=== PATIENT | female | born 1950 | race Caucasian/White ===

== ENCOUNTER 2020-01-03 12:29 | Inpatient (IN) | payer OTHER ==
[~2020-01-03] VITALS: Ht 165.1 cm; Wt 88.7 kg
[2020-01-03] MEDS ORDERED: INSURSD SC (12:42)
[2020-01-03] MEDS ORDERED: NS 1,000 ML IV SCH (12:48)
--- NOTE | 2020-01-03 13:26 | REP ---
A P and lateral chest with the patient sitting: There are no comparisons. The lung minor are clear. The cardiac size is normal. The kinjal, mediastinum, and skeletal structures are unremarkable. Impression: Negative AP and lateral chest. Electronically Signed by Andrés Lares MD 01/03/2020 01:18 P
[2020-01-03 13:29] LABS: BASO % 0.3 % (0.0-1.0); EOS # 0.1 10^3/uL (0.0-0.5); EOS % 0.9 % (0.0-3.0); HEMOGLOBIN 13.4 g/dl (12.0-15.5); LYMPH # 0.7 10^3/uL (1.5-5.0); LYMPH % 11.1 % (24.0-44.0); MEAN CORPUSCULAR HEMOGLOBIN 28.8 pg (27.0-33.0); MEAN CORPUSCULAR HGB CONC 32.7 g/dl (32.0-36.5); MONO # 0.6 10^3/uL (0.0-0.8); MONO % 10.9 % (0.0-5.0); NEUTROPHILS # 4.5 10^3/uL (1.5-8.5); NEUTROPHILS % 76.5 % (36.0-66.0); PLATELET COUNT, AUTOMATED 208 10^3/uL (150-450); RED BLOOD COUNT 4.66 10^6/uL (4.00-5.40); WHITE BLOOD COUNT 5.9 10^3/uL (4.0-10.0)
[2020-01-03 13:45] LABS: INR 1.05; PARTIAL THROMBOPLASTIN TIME 26.8 SECONDS (25.0-38.4); PROTHROMBIN TIME 13.4 SECONDS (11.8-14.0)
[2020-01-03 13:56] LABS: INFLUENZA A AMPLIFICATION POSITIVE (NEGATIVE); INFLUENZA B AMPLIFICATION NEGATIVE (NEGATIVE)
[2020-01-03 14:03] LABS: ALBUMIN 3.2 GM/DL (3.2-5.2); BILIRUBIN,DIRECT 0.2 MG/DL (0.0-0.2); BILIRUBIN,TOTAL 0.4 MG/DL (0.2-1.0); CALCIUM LEVEL 5.8 MG/DL (8.8-10.2); CK-MB VALUE MASS 1.5 NG/ML (<3.6); CREATININE FOR GFR 5.05 MG/DL (0.55-1.30); GLOMERULAR FILTRATION RATE 9.1 (>45); MB/CK RELATIVE INDEX 0.67 (< OR =4); POTASSIUM SERUM 3.1 MEQ/L (3.5-5.1); TOTAL PROTEIN 7.1 GM/DL (6.4-8.2); TROPONIN I 0.04 NG/ML (< 0.10)
[2020-01-03] MEDS ORDERED: POTASSIUM CHLORIDE 10 MEQ SR TABLET PO ONE (14:15)
[2020-01-03] MEDS ORDERED: CALCIUM GLUCONATE 1,000 MG in D5W MINI-BAG PLUS 100 ML IV ONE ×2 (14:15→18:00)
--- NOTE | 2020-01-03 16:26 | HPEPDOC ---
General Date of Admission 01/03/20 Date of Service: Jan 03, 2020 Chief Complaint The patient is a 69-year-old female admitted with a reason for visit of General Weakness. Source: Patient Exam Limitations: No limitations History of Present Illness 69 year old female presents with watery diarrhea and generalized weakness. States had "chest cold" 1 week ago, dry cough with sinus congestion. Soon after started with watery stools, nonbloody, 2-3 episodes per day. Denies fever/chills, abdominal pain, shortness of breath, urinary complaints. Diarrhea has persisted since, has had minimal PO intake, taking liquids but states "everything I eat passes right through me". Urinating as usual. Noted dark color to stool today prompting ED visit. Presents with BP 188/78, EKG T inversions I/avL, troponin negative, labs with K 3.1, Ca 5.8, SCr 5.05, flu positive A. Patient states only past medical history is DM, has last seen an MD 2 years ago and states her bloodwork was normal at that time. Home Medications Scheduled Insulin Human Regular (Humulin R) 100 Unit/1 Ml Vial, 13 UNITS SC BID, (Reported) Allergies Coded Allergies: No Known Allergies (Verified Allergy, Unknown, 01/03/20) Past Medical History Medical History DM2 Surgical History L knee surgery Family History Significant Family History: No pertinent family hx Social History * Smoker: Denies Alcohol: Denies Drugs: denies A-FIB/CHADSVASC A-FIB History Current/History of A-Fib/PAF?: No Review of Systems Constitutional: Reports: Weakness, Fatigue Eyes: Denies: Pain, Vision change ENT: Denies: Head Aches, Ear Pain, Dysphagia Skin: Denies: Rash, Lesions, Breakdown Pulmonary: Denies: Dyspnea, Cough Cardiovascular: Denies: Chest Pain, Palpitations, Orthopnea, Paroxysmal Noc. Dyspnea, Lt Headedness Gastrointestinal: Reports: Nausea, Diarrhea; Denies: Vomiting, Abdominal Pain Genitourinary: Denies: Dysuria, Frequency, Incontinence, Retention Hematologic: Denies: Bruising, Bleeding Excessively Musculoskeletal: Denies: Neck Pain, Back Pain, Joint Pain, Muscle Pain, Spasms Neurological: Denies: Weakness, Numbness, Change in speech, Confusion Psych: Reports: Mood Normal; Denies: Depression, Memory Issues Physical Examination General Exam: Positive: Alert, No Acute Distress Eye Exam: Positive: PERRLA, Conjunctiva & lids normal, EOMI; Negative: Sclera icteric ENT Exam: Positive: Atraumatic, Mucous membr. moist/pink, Pharynx Normal Neck Exam: Positive: Supple; Negative: JVD, thyromegaly Chest Exam: Positive: Clear to auscultation, Normal air movement Heart Exam: Positive: Rate Normal, Regular Rhythm, Normal S1, Normal S2; Negative: Murmurs, Rubs Telemetry: Positive: No significant arrhythmia Abdomen Exam: Positive: Normal bowel sounds, Soft; Negative: Tenderness, Hepatospenomegaly Extremity Exam: Positive: Normal pulses; Negative: Clubbing, Cyanosis, Edema Skin Exam: Positive: Nl turgor and temperature; Negative: Breakdown, Lesion Neuro Exam: Positive: Normal Gait, Normal Speech, Cranial Nerves 3-12 NL, Reflexes 2+ Psych Exam: Positive: Mental status NL, Mood NL, Oriented x 3 Vital Signs Vital Signs Date Time Temp Pulse Resp B/P (MAP) Pulse Ox O2 Delivery O2 Flow Rate FiO2 01/03/20 15:05 87 178/77 (110) 01/03/20 15:00 97 01/03/20 14:00 18 Room Air 01/03/20 12:40 98.0 Laboratory Data Labs 24H Laboratory Tests 2 01/03/20 13:04: Immature Granulocyte % (Auto) 0.3, Neutrophils (%) (Auto) 76.5H, Lymphocytes (%) (Auto) 11.1L, Monocytes (%) (Auto) 10.9H, Eosinophils (%) (Auto) 0.9, Basophils (%) (Auto) 0.3, Neutrophils # (Auto) 4.5, Lymphocytes # (Auto) 0.7L, Monocytes # (Auto) 0.6, Eosinophils # (Auto) 0.1, Basophils # (Auto) 0.0, Nucleated Red Blood Cells % (auto) 0.0, Prothrombin Time 13.4, Prothromb Time International Ratio 1.05, Activated Partial Thromboplast Time 26.8, Anion Gap 12, Glomerular Filtration Rate 9.1L, Calcium Level 5.8*L, Total Bilirubin 0.4, Direct Bilirubin 0.2, Aspartate Amino Transf (AST/SGOT) 24, Alanine Aminotransferase (ALT/SGPT) 20, Alkaline Phosphatase 114, Total Creatine Kinase 224H, Creatine Kinase MB 1.5, Creatine Kinase MB Relative Index 0.67, Troponin I 0.04, Total Protein 7.1, Albumin 3.2, Albumin/Globulin Ratio 0.82L, Lipase 107, Influenza Type A (RT-PCR) POSITIVEH, Influenza Type B (RT-PCR) NEGATIVE CBC/BMP Laboratory Tests 01/03/20 13:04 Assessment/Plan 1. acute renal failure - secondary to volume loss from diarrhea versus diabetic nephropathy. - would hydrate with IVF NS, follow SCr, monitor urine output. - Renal US, urine lytes. - consult to renal if no improvement. 2. watery diarrhea - IVF NS, stool studies, stool occult blood. - clear liquid diet. - zofran prn. 3. DM2 - FSBS/SSI coverage - check A1c. 4. hypokalemia - supplement, repeat levels. 5. mild troponemia - telemetry, serial markers. - repeat EKG. Plan / VTE VTE Prophylaxis Ordered?: Yes CARRIE CONTRERAS MD Jan 03, 2020 16:26
[2020-01-03] MEDS ORDERED: GLUCAGON FOR INJ 1 MG VIAL (J1610) SC PRN (16:30)
[2020-01-03] MEDS ORDERED: GLUCOSE 4 GM CHEW TABLET PO PRN (16:30)
[2020-01-03] MEDS ORDERED: ONDANSETRON 4MG/2ML VIAL (J2405) IV PRN (16:30)
[2020-01-03] MEDS ORDERED: DEXTROSE 50% 50 ML SYRINGE IV PRN (16:30)
[2020-01-03] MEDS: NS 1,000 ML IV SCH (16:51)
[2020-01-03] MEDS ORDERED: METOPROLOL 5 MG/5 ML VIAL IV STA (16:52)
[2020-01-03 16:55] LABS: CHOLESTEROL RISK RATIO 4.68 (<5)
[2020-01-03] MEDS ORDERED: OSELTAMIVIR PHOSPHATE 75 MG CAP (TAMIFLU) PO ONE (17:00)
[2020-01-03] MEDS ORDERED: amLODIPine 10 MG TAB PO ONE (17:00)
[2020-01-03 17:15] LABS: HEMOGLOBIN A1c 7.9 %
[2020-01-03 17:30] VITALS: BP 188/85
[2020-01-03] MEDS: HumaLOG INSULIN (NovoLOG) PER UNIT SC SCH (18:24)
[2020-01-03 20:00] VITALS: BP 142/65
--- NOTE | 2020-01-03 21:21 | REPVR ---
PROCEDURE INFORMATION: Exam: US Retroperitoneal Limited, Kidneys Exam date and time: 01/03/2020 5:42 PM Age: 69 years old Clinical indication: Abnormal findings; Abnormal lab test; Abnormal kidney function lab tests; Additional info: Acute renal failure TECHNIQUE: Imaging protocol: Real-time ultrasound of the retroperitoneum with image documentation. Examination was focused on the kidneys. COMPARISON: No relevant prior studies available. FINDINGS: Right kidney measures 9.9 cm in length. Left kidney measures 9.7 cm in length. Mild symmetric increased renal echotexture with no thinning. No solid renal mass, cyst or hydronephrosis. No shadowing, echogenic foci suggestive of stones. Bladder is unremarkable. IMPRESSION: No evidence of obstructive uropathy. Probable mild medical renal disease Electronically signed by: Cesar Paul On 01/03/2020 21:20:58 PM
[2020-01-04] VITALS (7 sets, daily range): BP systolic 158–194; BP diastolic 72–86
[2020-01-04] MEDS: NS 1,000 ML IV SCH ×2 (00:02→15:15)
[2020-01-04 00:58] LABS: CALCIUM LEVEL 5.9 MG/DL (8.8-10.2); CREATININE FOR GFR 4.87 MG/DL (0.55-1.30); GLOMERULAR FILTRATION RATE 9.5 (>45); POTASSIUM SERUM 3.4 MEQ/L (3.5-5.1); TROPONIN I 0.06 NG/ML (< 0.10)
[2020-01-04] MEDS ORDERED: POTASSIUM CHLORIDE 10 MEQ SR TABLET PO ONE (01:15)
[2020-01-04] MEDS ORDERED: CALCIUM GLUCONATE 1,000 MG in D5W MINI-BAG PLUS 100 ML IV ONE ×4 (01:15→18:00)
[2020-01-04 06:13] LABS: BILIRUBIN,TOTAL 0.3 MG/DL (0.2-1.0); CALCIUM LEVEL 5.9 MG/DL (8.8-10.2); CREATININE FOR GFR 4.75 MG/DL (0.55-1.30); GLOMERULAR FILTRATION RATE 9.8 (>45); POTASSIUM SERUM 3.8 MEQ/L (3.5-5.1); TOTAL PROTEIN 6.3 GM/DL (6.4-8.2)
[2020-01-04] MEDS: HumaLOG INSULIN (NovoLOG) PER UNIT SC SCH ×3 (08:02→17:47)
[2020-01-04] MEDS: OSELTAMIVIR PHOSPHATE 30MG CAPSULE PO SCH (08:03)
[2020-01-04] MEDS: CALCIUM/VITAMIN D 500 MG TAB PO SCH ×2 (08:03→21:17)
[2020-01-04] MEDS ORDERED: hydrALAZINE INJ 20 MG/ML VIAL IV STA (08:09)
[2020-01-04] MEDS ORDERED: CALCIUM GLUCONATE 1,000 MG in D5W MINI-BAG PLUS 100 ML IV STA (08:12)
[2020-01-04] MEDS ORDERED: CALCIUM GLUCONATE 1,000 MG in D5W MINI-BAG PLUS 100 ML IV SCH ×4 (09:00)
[2020-01-04] MEDS ORDERED: amLODIPine 10 MG TAB PO SCH (09:00)
--- NOTE | 2020-01-04 12:18 | IPNPDOC ---
Subjective Date Seen The patient was seen on 01/04/20. Subjective Chief Complaint/HPI Seen and examined at bedside, no specific complaints today, states feels better with "increased energy". General: Reports: Normal Appetite; Denies: Chills, Night Sweats, Fatigue, Malaise Constitutional: Denies: Chills, Fever, Night Sweats Eyes: Denies: Pain, Vision change ENT: Denies: Head Aches, Ear Pain, Dysphagia Skin: Denies: Rash, Lesions, Breakdown Pulmonary: Denies: Dyspnea, Cough Cardiovascular: Denies: Chest Pain, Palpitations, Orthopnea, Paroxysmal Noc. Dyspnea, Lt Headedness Gastrointestinal: Denies: Nausea, Vomiting, Abdominal Pain, Diarrhea, Consti pation Genitourinary: Denies: Dysuria, Frequency, Incontinence, Retention Hematologic: Denies: Bruising, Bleeding Excessively Musculoskeletal: Denies: Neck Pain, Back Pain, Joint Pain, Muscle Pain, Spasms Neurological: Denies: Weakness, Numbness, Change in speech, Confusion Psych: Reports: Mood Normal; Denies: Depression, Memory Issues Objective Physical Examination General Exam: Positive: Alert, No Acute Distress Eye Exam: Positive: PERRLA, Conjunctiva & lids normal, EOMI; Negative: Sclera icteric ENT Exam: Positive: Atraumatic, Mucous membr. moist/pink, Pharynx Normal Neck Exam: Positive: Supple; Negative: JVD, thyromegaly Chest Exam: Positive: Clear to auscultation, Normal air movement Heart Exam: Positive: Rate Normal, Regular Rhythm, Normal S1, Normal S2; Negative: Murmurs, Rubs Telemetry: Positive: No significant arrhythmia Abdomen Exam: Positive: Normal bowel sounds, Soft; Negative: Tenderness, Hepatospenomegaly Female Exam: Positive: Nl Ext Genitalia; Negative: Lesions, Discharge, Odor, Tenderness Extremity Exam: Positive: Normal pulses; Negative: Clubbing, Cyanosis, Edema Skin Exam: Positive: Nl turgor and temperature; Negative: Breakdown, Lesion Neuro Exam: Positive: Normal Gait, Normal Speech, Cranial Nerves 3-12 NL, Reflexes 2+ Psych Exam: Positive: Mental status NL, Mood NL, Oriented x 3 Assessment /Plan Assessment 1. acute renal failure - secondary to volume loss from diarrhea versus diabetic/hypertensive nephropathy. - IVF hydration, SCr 4.75 today. - Renal US with no significant findings, urine lytes. - renal consult today. 2. watery diarrhea - IVF NS, stool studies, stool occult blood. - clear liquid diet. - zofran prn. 3. DM2 - FSBS/SSI coverage - check A1c. 4. hypokalemia - supplement, repeat levels. 5. mild troponemia - telemetry, troponins flat. - repeat EKG. 6. hypocalcemia - supplement, PTH. Plan/VTE VTE Prophylaxis Ordered?: Yes VS, I&O, 24H, Fishbone Vital Signs/I&O Vital Signs Date Time Temp Pulse Resp B/P (MAP) Pulse Ox O2 Delivery O2 Flow Rate FiO2 01/04/20 09:56 174/77 (109) 01/04/20 08:02 85 01/04/20 07:18 97.3 18 95 Room Air I&O- Last 24 Hours up to 6 AM 01/04/20 06:00 Intake Total 1320 ml Output Total 200 ml Balance 1120 ml Laboratory Data 24H LABS Laboratory Tests 2 01/03/20 13:03: Estimated Mean Plasma Glucose 180H, Hemoglobin A1c 7.9 01/03/20 13:04: Immature Granulocyte % (Auto) 0.3, Neutrophils (%) (Auto) 76.5H, Lymphocytes (%) (Auto) 11.1L, Monocytes (%) (Auto) 10.9H, Eosinophils (%) (Auto) 0.9, Basophils (%) (Auto) 0.3, Neutrophils # (Auto) 4.5, Lymphocytes # (Auto) 0.7L, Monocytes # (Auto) 0.6, Eosinophils # (Auto) 0.1, Basophils # (Auto) 0.0, Nucleated Red Blood Cells % (auto) 0.0, Prothrombin Time 13.4, Prothromb Time International Ratio 1.05, Activated Partial Thromboplast Time 26.8, Anion Gap 12, Glomerular Filtration Rate 9.1L, Calcium Level 5.8*L, Total Bilirubin 0.4, Direct Bilirubin 0.2, Aspartate Amino Transf (AST/SGOT) 24, Alanine Aminotransferase (ALT/SGPT) 20, Alkaline Phosphatase 114, Total Creatine Kinase 224H, Creatine Kinase MB 1.5, Creatine Kinase MB Relative Index 0.67, Troponin I 0.04, Total Protein 7.1, Albumin 3.2, Albumin/Globulin Ratio 0.82L, Triglycerides Level 152H, Total Cholesterol 220H, LDL Cholesterol 143H, Non-HDL Cholesterol (LDL + VLDL) 173, Total HDL Cholesterol 47, Cholesterol/HDL Ratio 4.680, Lipase 107, Influenza Type A (RT-PCR) POSITIVEH, Influenza Type B (RT-PCR) NEGATIVE 01/03/20 17:22: Urine Color YELLOW, Urine Appearance CLEAR, Urine pH 6.0, Urine Specific [place] 1.009, Urine Protein 3+H, Urine Glucose (UA) 3+H, Urine Ketones TRACEH, Urine Blood NEGATIVE, Urine Nitrite NEGATIVE, Urine Bilirubin NEGATIVE, Urine Urobilinogen 0.2, Urine Leukocyte Esterase NEGATIVE, Urine WBC (Auto) 2, Urine RBC (Auto) 7H, Urine Hyaline Casts (Auto) 0, Urine Bacteria (Auto) 1+H, Urine Squamous Epithelial Cells 0, Urine Sperm (Auto) 01/03/20 17:57: Bedside Glucose (Misc Panel) 256H 01/04/20 00:07: Anion Gap 12, Glomerular Filtration Rate 9.5L, Calcium Level 5.9*L, Troponin I 0.06# 01/04/20 05:16: Anion Gap 11, Glomerular Filtration Rate 9.8L, Calcium Level 5.9*L, Total Bilirubin 0.3, Aspartate Amino Transf (AST/SGOT) 17, Alanine Aminotransferase (ALT/SGPT) 19, Alkaline Phosphatase 108, Total Protein 6.3L, Albumin 3.0L, Albumin/Globulin Ratio 0.91L 01/04/20 07:14: Whole Blood Ionized Calcium 3.5*L CBC/BMP Laboratory Tests 01/03/20 13:04 01/04/20 00:07 01/04/20 05:16 CARRIE CONTRERAS MD Jan 04, 2020 12:18
--- NOTE | 2020-01-04 17:29 | CR ---
DATE OF CONSULTATION: 01/04/2020 REASON FOR CONSULTATION: Renal failure. HISTORY OF PRESENT ILLNESS: Mrs. Jaramillo is a 69-year-old female who was admitted to [facility] last evening with watery diarrhea and generalized weakness. The patient reports that she was incontinent of stools and her called ambulance and sent her to hospital. She has longstanding history of diabetes and has been using insulin buying [id number]. She has not seen a physician at least in last couple of years since she moved to [facility]. Her creatinine was up to 5 and she has been hydrated with some improvement, but no significant improvement in her kidney function. A nephrology consultation was requested this morning and the patient is seen on her bedside. PAST MEDICAL HISTORY: Significant for: 1. Longstanding diabetes, currently on insulin. 2. Hypertension. 3. Possible chronic kidney disease without any prior history known and no basement renal function known. PAST SURGICAL HISTORY: Significant for left knee surgery. MEDICATIONS: Her only medication at home was regular insulin that she has been buying [id number] from [employer]. ALLERGIES: No known drug allergies. PERSONAL AND SOCIAL HISTORY: The patient lives with her and denies any alcohol or tobacco use. FAMILY HISTORY: Negative for end-stage renal disease. REVIEW OF SYSTEMS: The patient was admitted with diarrhea and she reports incontinence of stools at home. She denies any fever or chills. EARS, NOSE AND THROAT: Unremarkable. CARDIOVASCULAR SYSTEM: Negative for dyspnea or chest pain. RESPIRATORY SYSTEM: Negative for cough or hemoptysis. GASTROINTESTINAL (GI) SYSTEM: As per history of present illness. The patient did have some vomiting and diarrhea at home, but she feels better now. GENITOURINARY () SYSTEM: Negative for dysuria or hematuria. She denies any history of kidney stones. MUSCULOSKELETAL SYSTEM: Negative for any chronic leg edema and denies any significant arthritis. She will occasionally uses ibuprofen. ENDOCRINE SYSTEM: Significant for longstanding insulin-requiring diabetes and denies any thyroid problems. HEMATOLOGICAL SYSTEM: Negative for easy bruising or excessive bleeding. PSYCHOSOCIAL SYSTEM: Negative for depression or anxiety. She has not seen a physician in a few years and has been buying her insulin [id number]. NEUROLOGICAL SYSTEM: Negative for seizures or stroke. SKIN: Negative for rash or ulcers. PHYSICAL EXAMINATION: Elderly lady laying in the bed without any acute distress. Temperature is 98 degrees Fahrenheit, heart rate 85 per minute and respiratory rate 18 per minute. Blood pressure 170/78 mmHg and oxygen saturation 95% on room air. Head is atraumatic. There is no oral thrush or ulcers. Pupils equal and reactive to light and sclera is anicteric. Neck is supple and jugular venous distention (JVD) not abnormally elevated. Heart sounds are regular and lungs sound clear to auscultation bilaterally. Abdomen: Soft and nontender and bowel sounds are normal. Extremities: Without any cyanosis or clubbing. Neurologically, she is awake, alert and oriented x3. LABORATORY DATA: Her complete blood count (CBC) on admission showed a WBC count 5.9, hemoglobin 13.4 and hematocrit 41, with platelets 208. Her initial chemistry showed a sodium level 135, potassium 3.1, BUN 54 and creatinine 5.0. Glucose 100 and CO2 23. Her calcium level was only 5.8 and A1c 7.9%. Troponin 0.04 and 0.06. Triglyceride 152, total cholesterol 220 and LDL cholesterol 143. Lipase was 107. Urinalysis showed 3+ protein and 3+ glucose with 7 RBCs and 2 WBCs. Renal ultrasound showed a right kidney 9.9 cm and left kidney 9.7 cm in size without any hydronephrosis, stone or mass. She had a chest x-ray done on admission which did not show any acute findings and was unremarkable. PROBLEMS: 1. Renal failure. Most likely, she has acute on chronic renal failure related to dehydration. She has 3+ protein and longstanding diabetes, which has been poorly controlled with A1c of 7.9%. I suspect that she has longstanding diabetic nephropathy. Renal ultrasound did not show any evidence of obstruction. She has been hydrated with intravenous (IV) fluid and some improvement in kidney function noticed. At present, we will monitor her kidney function on a daily basis and there is no emergent indication for dialysis today. 2. Hypocalcemia. The patient does have severe hypocalcemia without any obvious cause. Her GI causes are unlikely to cause severe hypocalcemia. We will check her vitamin D level and intact PTH level and we will give her further doses of intravenous calcium gluconate 1 gram twice more today and recheck her calcium level tomorrow morning. She will continue with oral calcium and vitamin D supplement for now. 3. Hypokalemia. Most likely related to diarrhea and poor oral intake. Her potassium level has already improved. 4. Metabolic acidosis. She has mild metabolic acidosis related to her diarrhea and her diarrhea is already improving, so I am not going to give her sodium bicarbonate at present. 5. Diarrhea. The patient seems to have improved symptoms. She did test positive for flu, but not Clostridium (C) difficile. At present her diarrhea has improved, so we will continue with mild hydration, as indicated. Thank you for involving me in the care of Mrs. Jaramillo I will follow her along with you.
--- NOTE | 2020-01-04 20:47 | ECGEPIP ---
[facility] - ED Test Date: 2020-01-03 Pat Name: GAURAV COE Department: Room: - Gender: Female [employer] Dipper: jie : 1950 Requested By: YOKASTA Hunt Order Number: [id number] Reading MD: Ligia Hong Measurements Intervals [place] Rate: 86 P: 56 WV: 168 QRS: -7 QRSD: 82 T: 120 QT: 412 QTc: 494 Interpretive Statements SINUS RHYTHM LEFT VENTRICULAR HYPERTROPHY AND ST-T CHANGE VS ISCHEMIA NO PRIOR Electronically Signed on 01-04-2020 20:47:10 EST by Ligia Hong
[2020-01-04] MEDS ORDERED: CALCIUM CARBONATE 500 MG CHEW U/D PO PRN (21:30)
[2020-01-05] VITALS (9 sets, daily range): BP systolic 118–160; BP diastolic 70–83
--- NOTE | 2020-01-05 04:15 | IPNPDOC ---
Date Seen The patient was seen on 01/05/20. Progress Note RN called at 0404 am, new onset Afib w rvr 140bpm, sbp 160mmHg, asymptomatic plan: -cardizem 20mg iv x 1, cardizem 5mg/hr. -[id number] score 3. renally dose eliquis -echo. VS, I&O, 24H, Fishbone Vital Signs/I&O Vital Signs Date Time Temp Pulse Resp B/P (MAP) Pulse Ox O2 Delivery O2 Flow Rate FiO2 01/05/20 00:00 96.2 96 18 160/80 (106) 92 Room Air I&O- Last 24 Hours up to 6 AM 01/05/20 06:00 Intake Total 2800 ml Output Total 1700 ml Balance 1100 ml Laboratory Data 24H LABS Laboratory Tests 2 01/04/20 05:16: Anion Gap 11, Glomerular Filtration Rate 9.8L, Calcium Level 5.9*L, Total Bilirubin 0.3, Aspartate Amino Transf (AST/SGOT) 17, Alanine Aminotransferase (ALT/SGPT) 19, Alkaline Phosphatase 108, Total Protein 6.3L, Albumin 3.0L, Albumin/Globulin Ratio 0.91L 01/04/20 07:14: Whole Blood Ionized Calcium 3.5*L 01/04/20 13:10: Bedside Glucose (Misc Panel) 138H 01/04/20 17:39: Bedside Glucose (Misc Panel) 138H CBC/BMP Laboratory Tests 01/04/20 05:16 SUSHANT WALTERS MD Jan 05, 2020 04:05
[2020-01-05] MEDS: NS 1,000 ML IV SCH ×2 (04:22→11:10)
[2020-01-05] MEDS ORDERED: diltiaZEM 125 MG in NS 100 ML IV SCH (04:30)
[2020-01-05 05:31] LABS: HEMATOCRIT 33.5 % (36.0-47.0); MEAN CORPUSCULAR HEMOGLOBIN 29.2 pg (27.0-33.0); MEAN CORPUSCULAR HGB CONC 32.5 g/dl (32.0-36.5); MEAN CORPUSCULAR VOLUME 89.8 fl (80.0-96.0); PLATELET COUNT, AUTOMATED 197 10^3/uL (150-450); RED BLOOD COUNT 3.73 10^6/uL (4.00-5.40); WHITE BLOOD COUNT 10.2 10^3/uL (4.0-10.0)
[2020-01-05 05:45] LABS: HEMOGLOBIN 10.9 g/dl (12.0-15.5)
[2020-01-05 05:50] LABS: CALCIUM LEVEL 6.9 MG/DL (8.8-10.2); CREATININE FOR GFR 4.7 MG/DL (0.55-1.30); GLOMERULAR FILTRATION RATE 9.9 (>45); POTASSIUM SERUM 3.8 MEQ/L (3.5-5.1)
[2020-01-05] MEDS: HumaLOG INSULIN (NovoLOG) PER UNIT SC SCH ×3 (07:43→16:45)
[2020-01-05] MEDS ORDERED: FLUBLOK(EGG FREE)(QUAD)INFLUENZA VACC 0.5ML SYRINGE (90682)18YRS&OLDER IM ONE (09:00)
[2020-01-05] MEDS: APIXABAN 2.5 MG TAB (ELIQUIS) PO SCH ×2 (09:14→20:40)
[2020-01-05] MEDS: OSELTAMIVIR PHOSPHATE 30MG CAPSULE PO SCH (09:14)
[2020-01-05] MEDS: CALCIUM/VITAMIN D 500 MG TAB PO SCH ×3 (09:14→20:40)
[2020-01-05 09:28] LABS: PTH INTACT 415.1 PG/ML (18.5-88.0); TOTAL 25(OH) VITAMIN D 14.2 NG/ML (30.0-100.0)
--- NOTE | 2020-01-05 11:23 | REP ---
PA and lateral chest: Comparison is 01/03/2020. The lung minor are clear. The cardiac size is normal. The kinjal, mediastinum, and skeletal structures are unremarkable. Impression: Negative PA and lateral chest. Electronically Signed by Andrés Lares MD 01/05/2020 11:14 A
--- NOTE | 2020-01-05 11:32 | IPNPDOC ---
Subjective Date Seen The patient was seen on 01/05/20. Subjective Chief Complaint/HPI seen and examined at bedside, feels better today, overnight events noted. General: Reports: Normal Appetite; Denies: Chills, Night Sweats, Fatigue, Malaise Constitutional: Denies: Chills, Fever, Night Sweats Eyes: Denies: Pain, Vision change ENT: Denies: Head Aches, Ear Pain, Dysphagia Skin: Denies: Rash, Lesions, Breakdown Pulmonary: Denies: Dyspnea, Cough Cardiovascular: Denies: Chest Pain, Palpitations, Orthopnea, Paroxysmal Noc. Dyspnea, Lt Headedness Gastrointestinal: Denies: Nausea, Vomiting, Abdominal Pain, Diarrhea, Constipation Genitourinary: Denies: Dysuria, Frequency, Incontinence, Retention Hematologic: Denies: Bruising, Bleeding Excessively Musculoskeletal: Denies: Neck Pain, Back Pain, Joint Pain, Muscle Pain, Spasms Neurological: Denies: Weakness, Numbness, Change in speech, Confusion Psych: Reports: Mood Normal; Denies: Depression, Memory Issues Objective Physical Examination General Exam: Positive: Alert, No Acute Distress Eye Exam: Positive: PERRLA, Conjunctiva & lids normal, EOMI; Negative: Sclera icteric ENT Exam: Positive: Atraumatic, Mucous membr. moist/pink, Pharynx Normal Neck Exam: Positive: Supple; Negative: JVD, thyromegaly Chest Exam: Positive: Clear to auscultation, Normal air movement Heart Exam: Positive: Rate Normal, Regular Rhythm, Normal S1, Normal S2; Negative: Murmurs, Rubs Telemetry: Positive: No significant arrhythmia Abdomen Exam: Positive: Normal bowel sounds, Soft; Negative: Tenderness, Hepatospenomegaly Female Exam: Positive: Nl Ext Genitalia; Negative: Lesions, Discharge, Odor, Tenderness Extremity Exam: Positive: Normal pulses; Negative: Clubbing, Cyanosis, Edema Skin Exam: Positive: Nl turgor and temperature; Negative: Breakdown, Lesion Neuro Exam: Positive: Normal Gait, Normal Speech, Cranial Nerves 3-12 NL, Reflexes 2+ Psych Exam: Positive: Mental status NL, Mood NL, Oriented x 3 Assessment /Plan Assessment 1. acute renal failure (on CKD) - secondary to volume loss from diarrhea versus component of diabetic/hype rtensive nephropathy. - IVF hydration, SCr 4.70 today. - Renal US with no significant findings. - renal following. 2. PAF - episode of afib RVR overnight, started on cardizem gtt and eliquis. - spontaneous conversion to NSR today AM, currently rate controlled. - monitor on telemetry. 3. watery diarrhea - improving, on renal diet. - zofran prn. 4. DM2 - FSBS/SSI coverage - A1c 7.9. 5. hypokalemia - resolved, monitor. 6. hypocalcemia - improving, supplement, PTH. 7. leukocytosis - monitor, afebrile, CXR negative, UA. Plan/VTE VTE Prophylaxis Ordered?: Yes VS, I&O, 24H, Fishbone Vital Signs/I&O Vital Signs Date Time Temp Pulse Resp B/P (MAP) Pulse Ox O2 Delivery O2 Flow Rate FiO2 01/05/20 08:00 98.0 97 20 130/70 (90) 96 01/05/20 04:00 Room Air I&O- Last 24 Hours up to 6 AM 01/05/20 06:00 Intake Total 2800 ml Output Total 1800 ml Balance 1000 ml Laboratory Data 24H LABS Laboratory Tests 2 01/04/20 13:10: Bedside Glucose (Misc Panel) 138H 01/04/20 17:39: Bedside Glucose (Misc Panel) 138H 01/05/20 05:14: Nucleated Red Blood Cells % (auto) 0.0, Anion Gap 12, Glomerular Filtration Rate 9.9L, Calcium Level 6.9#L, 25-Hydroxy Vitamin D Total 14.2L, Parathyroid Hormone (Intact) 415.1H CBC/BMP Laboratory Tests 01/05/20 05:14 CARRIE CONTRERAS MD Jan 05, 2020 11:32
[2020-01-05] MEDS ORDERED: SLF 3 ML SYR IV PRN (16:45)
--- NOTE | 2020-01-05 19:50 | ECHO ---
DATE OF PROCEDURE: 01/05/2020 REFERRING PHYSICIANS: Dr. Watkins and Dr. Torres INDICATION: Dysrhythmia Height 165 cm, weight 89 kg. DIMENSIONS: IVS: 0.8 LV: 4.7 LVPW: 1.1 LA: 3.6 IVC: 2.1 Left atrial volume index: 29 Mitral E wave velocity: 100 A wave: 129 E prime septal: 6.7 E prime lateral: 6.7 FINDINGS: The study is of poor technical quality with very limited visualization. The patient is in sinus rhythm. Normal LV size with overall probably normal LV systolic function based on very limited views. Right ventricle also appears grossly normal. Same applies for both atria. Aortic valve has mild sclerosis, but the structure was not well visualized; and cannot comment on details of its anatomy. There are mild degenerative abnormalities of mitral valve with mitral annular calcifications and preserved leaflet mobility. Tricuspid valve appears normal. Pulmonic valve was not well seen. No pericardial effusion is noted. Doppler interrogation of the aortic valve reveals trivial stenosis with 10 mmHg. There is trace mitral insufficiency. No significant mitral stenosis, even though there is trivial gradient. There is trace tricuspid insufficiency. Quality of TR jet was not sufficient to adequately estimate pulmonary artery pressure. Mitral inflow pattern and Doppler imaging of mitral annulus reveals grade 1 diastolic dysfunction. CONCLUSIONS: 1. Study is of poor technical quality with difficult visualization. The patient is in sinus rhythm. 2. Normal left ventricular (LV) size with likely normal LV systolic function and grade 1 diastolic dysfunction. 3. Trivial aortic stenosis. 4. No significant mitral valvular disease. 5. At least mildly elevated central venous pressure. 6. Unable to estimate pulmonary artery pressure. COMMENT: Subacute bacterial endocarditis (SBE) prophylaxis is not recommended. MTDD
--- NOTE | 2020-01-05 20:20 | IPN ---
DATE: 01/05/2020 Ms. Jaramillo is seen this morning on her bedside. I was called geodesist by hospitalist who reported that the patient went into atrial fibrillation with rapid ventricular response. She was treated with Cardizem and is now back in sinus rhythm. She was also started on Eliquis. The patient denies any chest pain, dyspnea, nausea or vomiting. She reports that her diarrhea has improved and did not have much bowel movement. She remains on full liquid diet which she is tolerating well. PHYSICAL EXAMINATION: Temperature 98 degrees Fahrenheit, heart rate 97 per minute and respiratory rate 20 per minute. Blood pressure 130/70 mmHg and oxygen saturation 96% on room air. Head is atraumatic. Neck is supple and JVD not abnormally elevated. She has no oral thrush or ulcers. Heart sounds are regular and somewhat tachycardiac. Lungs with bilateral basilar crepitations. Abdomen soft and nontender and bowel sounds are normal. Extremities without any cyanosis or clubbing. She does have trace of edema on her ankles. Neurologically she is awake, alert and oriented times three. Today's labs show WBC count 10.2, hemoglobin 10.9 and hematocrit 33.5. Platelets 197. Sodium 137, potassium 3.8, CO2 18, BUN 49 and creatinine 4.70. Glucose 205 and calcium is up to 6.9. Her vitamin D level has come back at 14.2 and intact PTH level 415. PROBLEMS: 1. Acute renal failure superimposed on chronic kidney disease. Minimal improvement in kidney function noticed over last 24 hours. She does not have any overt uremic symptoms and I am going to continue watching her. There is no emergent indication for dialysis at present. 2. Metabolic acidosis. She has mild metabolic acidosis related to acute renal failure. We will hold off on sodium bicarbonate for now and recheck her renal profile tomorrow morning. 3. Hypocalcemia and vitamin D deficiency. Her hypocalcemia is better with supplement. However, still calcium level is low and she has severe vitamin D deficiency. I am going to increase her oral calcium with vitamin D supplement 1000 mg three times a day and also add additional vitamin D 50,000 units once a week. 4. Diarrhea. Her diarrhea has improved and we will advance her diet to renal diet and see how she tolerates it. 5. Atrial fibrillation with rapid ventricular rate. With Cardizem she has converted back to sinus rhythm and remains on Eliquis. At this point her volume status still seems reasonably well-compensated. A chest x-ray is being ordered to rule out any possibility of congestive heart failure. 6. Anemia. She has mild anemia related to hemodilution and does not need any urgent intervention.
[2020-01-05] MEDS: SLF 3 ML SYR IV SCH (20:41)
[2020-01-06] VITALS: BP 157/72
[2020-01-06 04:00] VITALS: BP 148/76
[2020-01-06 05:17] LABS: HEMATOCRIT 31.8 % (36.0-47.0); HEMOGLOBIN 10.3 g/dl (12.0-15.5); MEAN CORPUSCULAR HEMOGLOBIN 28.8 pg (27.0-33.0); MEAN CORPUSCULAR HGB CONC 32.4 g/dl (32.0-36.5); MEAN CORPUSCULAR VOLUME 88.8 fl (80.0-96.0); PLATELET COUNT, AUTOMATED 223 10^3/uL (150-450); RED BLOOD COUNT 3.58 10^6/uL (4.00-5.40); WHITE BLOOD COUNT 6.9 10^3/uL (4.0-10.0)
[2020-01-06 05:28] LABS: CALCIUM LEVEL 7.2 MG/DL (8.8-10.2); CREATININE FOR GFR 4.76 MG/DL (0.55-1.30); GLOMERULAR FILTRATION RATE 9.7 (>45); POTASSIUM SERUM 3.6 MEQ/L (3.5-5.1)
[2020-01-06] MEDS: SLF 3 ML SYR IV SCH ×2 (05:49→14:02)
[2020-01-06 08:00] VITALS: BP 115/80
[2020-01-06] MEDS: LEVALBUTEROL 1.25 MG/0.5 ML CONCENTRATE NEB INH SCH ×3 (08:00→15:18)
[2020-01-06] MEDS: OSELTAMIVIR PHOSPHATE 30MG CAPSULE PO SCH (08:16)
[2020-01-06] MEDS: APIXABAN 2.5 MG TAB (ELIQUIS) PO SCH (08:16)
[2020-01-06] MEDS: CALCIUM/VITAMIN D 500 MG TAB PO SCH ×2 (08:17→16:52)
[2020-01-06] MEDS: HumaLOG INSULIN (NovoLOG) PER UNIT SC SCH ×2 (08:18→12:42)
[2020-01-06] MEDS ORDERED: LEVALBUTEROL 1.25 MG/0.5 ML CONCENTRATE NEB INH PRN (08:30)
[2020-01-06] MEDS ORDERED: BD I1MIS14 SC (08:47)
[2020-01-06] MEDS ORDERED: VITAMIN D 50,000 UNITS CAPSULE (ERGOCALCIFEROL 1.25MG) PO SCH (09:00)
[2020-01-06 12:00] VITALS: BP 120/82
[2020-01-06 14:00] VITALS: BP 145/77
--- NOTE | 2020-01-06 14:10 | IPNPDOC ---
Text Note Date of Service The patient was seen on 01/06/20. NOTE Subjective: Patient is a 69-year-old female with a PMHx of IDDM2 , was not seen a provider in many years and has been self-medicating with her own [id number] insulin. Patient presented to the emergency room with complaints of generalized weakness. Patient has noted that she had a recent history of diarrhea with 2-3 episodes of loose bowel movements. In the emergency room, patient was found to have acute kidney injury. Her baseline kidney function is unclear. Nephrology was called on consultation Patient was seen and examined at the bedside. Currently, patient denies any nausea, vomiting, chest pain, shortness of breath, palpitations, abdominal pain, constipation, diarrhea, or urinary discomfort. Objective: Vitals (See below) General: Lying in bed, no acute distress, comfortable, AAOx3 HEENT: NC, AT CVS: RRR, +S1S2 Lungs: Fair air entry b/l, -w/r/r Abdomen: Soft, ND, NT Extremities: - Edema, - Calf tenderness Assessment and plan: Acute renal failure - likely on CKD; possibly chronic - however remains unclear without baseline for comparison - Presented to the emergency room with complaints of generalized weakness after having a recent history of diarrhea - Patient's baseline kidney function is unclear - Creatinine has remained stable throughout hospital course, without any significant improvement; suspicious for chronic kidney disease - Renal US 01/06: No evidence of obstructive uropathy. Probable mild medical renal disease. - No current indications for dialysis - Nephrology on consultation; appreciate their input Paroxysmal A. fib - Patient's heart rate has returned back to normal sinus rhythm - ECHO 01/05: G1DD, Preserved EF - s/p Cardizem drip - c/w full anticoagulation with Eliquis s/p Watery diarrhea DM2 - c/w ISS s/p Hypokalemia s/p Hypocalcemia Leukocytosis - possibly 2/2 Influenza - Clinically improving - c/w Tamiflu - c/w Inhaled therapy as ordered HTN - s/p Hypertensive urgency - BP remains well controlled - c/w Amlodipine DVT prophylaxis - c/w full anticoagulation with Eliquis VS,Fishbone, I+O VS, Fishbone, I+O Laboratory Tests 01/06/20 04:40 Vital Signs Date Time Temp Pulse Resp B/P (MAP) Pulse Ox O2 Delivery O2 Flow Rate FiO2 01/06/20 12:00 96.7 98 17 120/82 (95) 98 Room Air I&O- Last 24 Hours up to 6 AM 01/06/20 06:00 Intake Total 1680 ml Output Total 500 ml Balance 1180 ml DANIEILTO CONTRERAS MD Jan 06, 2020 14:10
--- NOTE | 2020-01-06 15:01 | IPN ---
DATE OF VISIT: 01/06/2020 Mrs. Jaramillo is seen this morning on her bedside. She is sitting in the chair and reports feeling well. She wants to go home today. Yesterday, her diet was advanced to a renal diet, and she has been tolerating it well. She denies any dyspnea, chest pain, fever, chills, nausea, or vomiting. On physical exam, temperature 97.4 degrees Fahrenheit, heart rate 96 per minute, and respiratory rate 17 per minute. Blood pressure 120/82 mmHg, and oxygen saturation 98% on room air. Head is atraumatic. Neck: Supple and without jugular venous distention (JVD) or thyroid enlargement. Heart: Sounds are regular, and lungs with bilateral basilar crackles. Abdomen: Soft and nontender, and bowel sounds are normal. Extremities: Without any cyanosis or clubbing. Her right eye is small and sunken due to prior surgeries and loss of vision. Neurologically, she is awake, alert, and oriented times three. Today's labs shows WBC count 6.9, hemoglobin 10.3, and hematocrit 31.8. Sodium 139, potassium 3.6, CO2 19, BUN 48 and creatinine 4.76. Calcium level is 7.2 today. PROBLEMS: 1. Acute renal failure superimposed on chronic kidney disease. She has no significant change in kidney function over last few days, and her glomerular filtration rate (GFR) has been between 9.1 and 9.9. I have discussed with the patient and explained to her about potential need for dialysis in near future. She does not have any overt uremic symptoms, and I do not feel that emergent dialysis is indicated. We will try to get her prepared for dialysis as an outpatient. Vein mapping of her upper extremities is being ordered, and she will be referred to vascular surgery for arteriovenous (AV) fistula creation. 2. Hypocalcemia. Her calcium level has improved, and she will continue with oral calcium and vitamin D. This will be followed up in the office as an outpatient. 3. Anemia, most likely related to acute and chronic kidney disease. No urgent intervention is needed at present. 4. Disposition. The patient was admitted due to flu and diarrhea. Her symptoms have improved now and from renal standpoint, she can be discharged to home after vein mapping Doppler is done, and followup in my office in 1 week.
--- NOTE | 2020-01-06 15:58 | REP ---
Bilateral upper extremity arterial and venous Doppler ultrasound: History: Vein mapping study for arteriovenous fistula. Findings: There is an intravenous cannula at the left wrist in the cephalic vein. There is no evidence of upper extremity venous thrombosis on either side. Normal arterial Doppler waveforms are noted bilaterally in the upper extremities. No stenosis is seen. No occlusion is noted. Right upper extremity vein diameter chart: Upper humerus basilic 3.3 mm, cephalic 1.3 mm Lower humerus basilic 2.0 mm, cephalic 2.3 mm Upper forearm basilic 1.0 mm, cephalic 2.6 mm Lower forearm basilic 0.8 mm, cephalic 2.3 mm Median cubital 2.2 mm Left upper extremity vein diameter chart: Upper humerus basilic 2.9 mm, cephalic 1.2 mm Lower humerus basilic 1.6 mm, cephalic 1.2 mm Upper forearm basilic 1.5 mm, cephalic 1.5 mm Lower forearm basilic 1.6 mm, cephalic 2.2 mm Right upper extremity arterial Doppler velocity and size diameter chart: Axillary artery 102 cm, 5.3 mm Brachial artery 100 cm/S, 3.3 mm Radial artery 78 cm/S, 1.1 mm Ulnar artery 45 cm/S, 1.9 mm Left upper extremity arterial Doppler velocity and size diameter chart: Axillary artery 91 cm/S, 5.6 mm Brachial artery 120 cm/S, 3.7 mm Radial artery 103 cm/S, 2.1 mm Ulnar artery 66 cm/S, 2.8 mm Electronically Signed by Noah Moran MD 01/06/2020 03:49 P
[2020-01-06] MEDS ORDERED: OYST500C PO (16:17)
[2020-01-06] MEDS ORDERED: DRIS50003 PO (16:17)
[2020-01-06] MEDS ORDERED: CALC500T60 PO (16:17)
[2020-01-06] MEDS ORDERED: OSEL30CA PO (16:17)
[2020-01-06] MEDS ORDERED: ELIQ2.5T PO (16:17)
[2020-01-06] MEDS ORDERED: AMLO5TAB6 PO (16:17)
--- NOTE | 2020-01-06 16:21 | DS.PDOC ---
Discharge Summary General Date of Admission Jan 05, 2020 at 11:37 Date of Discharge 01/06/2020 Discharge Summary PROCEDURES PERFORMED DURING STAY: [None]. ADMITTING DIAGNOSES / DISCHARGE DIAGNOSES: Acute renal failure - likely on CKD; possibly chronic - however remains unclear without baseline for comparison Paroxysmal A. fib s/p Watery diarrhea DM2 s/p Hypokalemia s/p Hypocalcemia Leukocytosis - possibly 2/2 Influenza HTN DVT prophylaxis COMPLICATIONS/CHIEF COMPLAINT: Generalized weakness HISTORY OF PRESENT ILLNESS: Patient is a 69-year-old female with a PMHx of IDDM2 , was not seen a provider in many years and has been self-medicating with her own [id number] insulin. Patient presented to the emergency room with complaints of generalized weakness. Patient has noted that she had a recent history of diarrhea with 2-3 episodes of loose bowel movements. In the emergency room, patient was found to have acute kidney injury. Her baseline kidney function is unclear. Nephrology was called on consultation HOSPITAL COURSE: Acute renal failure - likely on CKD; possibly chronic - however remains unclear without baseline for comparison - Presented to the emergency room with complaints of generalized weakness after having a recent history of diarrhea - Patient's baseline kidney function is unclear - Creatinine has remained stable throughout hospital course, without any significant improvement; suspicious for chronic kidney disease - Renal US 01/06: No evidence of obstructive uropathy. Probable mild medical renal disease. - No current indications for dialysis - Nephrology on consultation; appreciate their input Paroxysmal A. fib - Patient's heart rate has returned back to normal sinus rhythm - ECHO 01/05: G1DD, Preserved EF - s/p Cardizem drip - c/w full anticoagulation with Eliquis s/p Watery diarrhea DM2 - c/w ISS s/p Hypokalemia s/p Hypocalcemia Leukocytosis - possibly 2/2 Influenza - Clinically improving - c/w Tamiflu - c/w Inhaled therapy as ordered HTN - s/p Hypertensive urgency - BP remains well controlled - c/w Amlodipine DVT prophylaxis - c/w full anticoagulation with Eliquis DISCHARGE MEDICATIONS: Please see below. ALLERGIES: Please see below. PHYSICAL EXAMINATION ON DISCHARGE: Vitals (See below) General: Lying in bed, no acute distress, comfortable, AAOx3 HEENT: NC, AT CVS: +S1S2 Lungs: Fair air entry b/l, -w/r/r Abdomen: Soft, nondistended and nontender Extremities: - Edema, - Calf tenderness LABORATORY DATA: Please see below. ACTIVITY: [As tolerated]. DISCHARGE PLAN: Follow-up with Dr. Overton within 7 days Remain compliant with treatment plan and medications Return to the ER if you experience any problems DISPOSITION: Home DISCHARGE CONDITION: [Stable]. TIME SPENT ON DISCHARGE: 35 minutes Vital Signs/I&Os Vital Signs Date Time Temp Pulse Resp B/P (MAP) Pulse Ox O2 Delivery O2 Flow Rate FiO2 01/06/20 12:00 96.7 98 17 120/82 (95) 98 Room Air I&O- Last 24 Hours up to 6 AM 01/06/20 05:59 Intake Total 1680 ml Output Total 600 ml Balance 1080 ml Laboratory Data Labs 24H Laboratory Tests 2 01/05/20 16:36: Bedside Glucose (Misc Panel) 122H 01/06/20 04:40: Nucleated Red Blood Cells % (auto) 0.0, Anion Gap 11, Glomerular Filtration Rate 9.7L, Calcium Level 7.2L 01/06/20 11:45: Bedside Glucose (Misc Panel) 181H CBC/BMP Laboratory Tests 01/06/20 04:40 FSBS Laboratory Tests Test 01/05/20 16:36 01/06/20 11:45 Range/Units Bedside Glucose (Misc Panel) 122 181 80-115 MG/DL Discharge Medications Scheduled Amlodipine Besylate (Amlodipine Besylate) 5 Mg Tablet, 5 MG PO DAILY Apixaban (Eliquis) 2.5 Mg Tablet, 2.5 MG PO BID Calcium Carbonate (Calcium Carbonate) 500 Mg Tablet, 1 TAB PO TID Calcium Carbonate/Vitamin D3 (Calcium 500+D Tablet Chew) 1 Each Tab.chew, 2 TAB PO TID Ergocalciferol (Vitamin D2) (Drisdol) 1,250 Mcg Capsule, 50,000 UNITS PO Tu@09 Insulin Human Regular (Humulin R) 100 Unit/1 Ml Vial, 13 UNITS SC BID, (Reported) Oseltamivir Phosphate (Oseltamivir Phosphate) 30 Mg Capsule, 30 MG PO DAILY Allergies Coded Allergies: No Known Allergies (Verified Allergy, Unknown, 01/03/20) DANIELITO CONTRERAS MD Jan 06, 2020 16:21
[2020-01-07] MEDS ORDERED: amLODIPine 5 MG TAB PO SCH (09:00)
== END 2020-01-06 17:54 | disposition home or self-care (01) | DRG 194 ==
LOC: M ED 12:29 → EDUNIT# 12:29 → EDBD 12:29 → M ED INP 16:26 → ENRESERVTM 16:48 → ENRESERVDT 16:48 → M PCU 17:30 → OBSVTOIN 01-05 11:37
PROVIDERS: ADMIT Internal Medicine; ATTEND Internal Medicine
DX: J10.1 Influenza due to other identified influenza virus with other respiratory manifestations (principal); N17.9 Acute kidney failure, unspecified; E87.2 Acidosis; I12.9 Hypertensive chronic kidney disease with stage 1 through stage 4 chronic kidney disease, or unspecified chronic kidney disease; R19.7 Diarrhea, unspecified; E11.40 Type 2 diabetes mellitus with diabetic neuropathy, unspecified; E87.6 Hypokalemia; E83.51 Hypocalcemia; I48.0 Paroxysmal atrial fibrillation; D72.829 Elevated white blood cell count, unspecified; N18.9 Chronic kidney disease, unspecified; E11.22 Type 2 diabetes mellitus with diabetic chronic kidney disease; I16.0 Hypertensive urgency; D63.1 Anemia in chronic kidney disease; Z79.4 Long term (current) use of insulin

== ENCOUNTER → 2020-01-14 | Outpatient (REF) | payer OTHER ==
[~2020-01-14] MED LIST: AMLO5TAB6 PO; BD I1MIS14 SC; CALC500T60 PO; DRIS50003 PO; ELIQ2.5T PO; INSURSD SC; OSEL30CA PO; OYST500C PO
[2020-01-16 10:20] LABS: HEPATITIS B CORE ANTIBODY IGM NEGATIVE (NEGATIVE); HEPATITIS B SURFACE ANTIBODY NEGATIVE (POSITIVE); HEPATITIS B SURFACE ANTIGEN NEGATIVE (NEGATIVE); HEPATITIS C VIRUS ABY INDEX < 0.0 INDEX (<0.8)
== END ==
LOC: M LAB REF 13:20
PROVIDERS: ATTEND Internal Medicine Nephrology
DX: N18.6 End stage renal disease (principal)

== ENCOUNTER → 2020-01-15 | Outpatient (CLI) | payer OTHER ==
[~2020-01-15] MED LIST changes: +HEPARIN 1,000 UNITS/ML 10ML VIAL (FOR RADIOLOGY& DIALYSIS ONLY)(J1644-10) As Ordered ONE; +ISOVUE-300 61% 50ML VIAL (Q9967) As Ordered ONE; +LIDOCAINE W/EPINEPHRINE 1% 20ML VIAL As Ordered ONE; +MIDAZOLAM INJ 2 MG/2 ML VIAL (J2250) As Ordered ONE; +ceFAZolin 1GM INJ (J0690 PER 500MG) As Ordered ONE; +fentaNYL 100 MCG/2 ML INJECTION (J3010) As Ordered ONE
== END ==
LOC: M IRPRO 14:06
PROVIDERS: ATTEND Surgery Vascular Surgery
DX: N18.6 End stage renal disease (principal)
CPT/HCPCS: 36558; 99152; C1750; C1894; J0690; J1644; J2250; J3010

== ENCOUNTER → 2020-01-15 | Outpatient (CLI) | payer OTHER ==
[~2020-01-15] MED LIST changes: -HEPARIN 1,000 UNITS/ML 10ML VIAL (FOR RADIOLOGY& DIALYSIS ONLY)(J1644-10) As Ordered ONE; -ISOVUE-300 61% 50ML VIAL (Q9967) As Ordered ONE; -LIDOCAINE W/EPINEPHRINE 1% 20ML VIAL As Ordered ONE; -MIDAZOLAM INJ 2 MG/2 ML VIAL (J2250) As Ordered ONE; -ceFAZolin 1GM INJ (J0690 PER 500MG) As Ordered ONE; -fentaNYL 100 MCG/2 ML INJECTION (J3010) As Ordered ONE
--- NOTE | 2020-01-15 18:15 | ROOPDOC ---
[facility] Report Of Operation Report of Operation DATE OF PROCEDURE: 01/15/20 PREPROCEDURE DIAGNOSES: End-stage renal disease requiring access for dialysis. POSTPROCEDURE DIAGNOSES: Same PROCEDURE: 1. Ultrasound-guided access right internal jugular vein 2. Placement of a 23 cm tunneled dual-lumen PermCath right IJ SURGEON: Bella Rivera MD ANESTHESIA: Local anesthesia 12 mL lidocaine. Moderate intravenous conscious sedation was supervised by Dr. Rivera. The patient was independently monitored by registered nurse assigned to the Department of radiology using automated blood pressure, EKG, and pulse oximetry. The detailed sedation record is permanently stored in the hospital information system. The following is the brief sedation record: Start time 17:48, stop time 1800, fentanyl 50 g IV, Versed 1 mg IV. INDICATION FOR PROCEDURE: This is a very pleasant 69-year-old patient with end- stage renal disease requiring access for dialysis. Risks benefits and alternatives to a PermCath placement were explained to the patient and she is agreeable to proceed. Informed consent was obtained. We also discussed with the patient her recent vein mapping and she has very small basilic and cephalic veins, so we will likely elect to place a brachial axillary graft for dialysis permanent access, this will be at a later date. The patient is agreeable to that plan as well. INTERPRETATION: The catheter is in good position with the tip freely mobile at the SVC right atrial junction. There is no pneumothorax. There are no kinks in the catheter. It is okay to use the catheter for dialysis. REPORT OF OPERATION: The patient was brought to the angiographic suite in stable condition and placed supine on the fluoroscopic table. Her right neck and chest were prepped and draped in a sterile fashion. A timeout was performed. Sedation was administered without complication. Local anesthesia was a certified ophthalmic medical technician to the skin and subcutaneous tissue over the right neck and a microneedle was used to access the jugular vein under ultrasound guidance. A wire was passed through this access into the central system under fluoroscopic guidance the needle was removed and a micro-sheath was placed. A small incision was made at the jugular access site. Local anesthesia was administered to the skin and subcutaneous taste tissue on the right chest just distal to the clavicle and was then extended up over the clavicle to the jugular access site. A small incision was made on the right chest and a 23 cm PermCath was tunneled from the right chest to the jugular access site until the cough was within the subcutaneous tissue. We then performed 2 serial dilations over the wire using a Seldinger technique, and then the peel-away sheath was placed over the wire under fluoroscopic guidance. The inner cannula and wire were removed in the tips of the catheter were advanced through the peel-away sheath into the central system. The peel- away sheath was removed. Both ports vandana back and flushed easily. They were heparin locked. Appropriate caps were placed. Final imaging showed the catheter to be in good position, no kinks in the catheter, with the tip freely mobile at the SVC right atrial junction and no pneumothorax. We irrigated the catheter sites and the jugular access site was closed with deep and superficial dermal interrupted Monocryl sutures and Dermabond was placed at the skin. The exit site of the catheter in the right chest was closed with Prolene sutures and the catheter was secured to the chest wall in 2 additional Prolene sutures. Sterile dressings were applied. The patient was then taken back to recovery in stable condition. She tolerated the sedation the procedure very well. No complications. ESTIMATED BLOOD LOSS: Approximately 2 mL. COMPLICATIONS: None. PLAN: It is okay to use the PermCath for dialysis. The patient will follow up in clinic to discuss final options for AV access. Likely we will recommend a brachial axillary artery graft placement due to diminutive upper extremity veins. We appreciate the opportunity to participate in the care of this patient. BELLA RIVERA MD Jan 15, 2020 18:15
[2020-01-15 18:18] VITALS: BP 143/67
== END ==
LOC: M RAD 14:00
PROVIDERS: ATTEND Surgery Vascular Surgery
DX: N18.6 End stage renal disease (principal)

== ENCOUNTER 2020-02-20 06:22 | Day surgery (SDC) | payer OTHER ==
[~2020-02-20] VITALS: Ht 165.1 cm; Wt 82.6 kg
[~2020-02-20 06:22] MED LIST changes: +INSUNSD SC; +LIDOCAINE 1% MDV 20ML VIAL SQ PRN; +RENATAB5 PO
[2020-02-20] MEDS ORDERED: ceFAZolin SOD 2 GM in IV 1 EA IV ONE (07:00)
[2020-02-20] MEDS ORDERED: LR 1,000 ML IV ONE (07:00)
[2020-02-20] MEDS ORDERED: LIDOCAINE 1% SDV INJ 30 ML VIAL As Ordered ONE (07:06)
[2020-02-20] MEDS ORDERED: ISOVUE-300 61% 50ML VIAL (Q9967) As Ordered ONE (07:06)
[2020-02-20] MEDS ORDERED: HEPARIN SOD (PORCINE) 5000 UNITS/ML VIAL (J1644 PER 1000UNITS) As Ordered ONE ×2 (07:07→08:41)
[2020-02-20 07:22] LABS: HEMATOCRIT 41.7 % (36.0-47.0); HEMOGLOBIN 13.4 g/dl (12.0-15.5); MEAN CORPUSCULAR HEMOGLOBIN 29.8 pg (27.0-33.0); MEAN CORPUSCULAR HGB CONC 32.1 g/dl (32.0-36.5); MEAN CORPUSCULAR VOLUME 92.9 fl (80.0-96.0); PLATELET COUNT, AUTOMATED 301 10^3/uL (150-450); RED BLOOD COUNT 4.49 10^6/uL (4.00-5.40); WHITE BLOOD COUNT 7.2 10^3/uL (4.0-10.0)
[2020-02-20 07:33] LABS: INR 0.95; PROTHROMBIN TIME 12.4 SECONDS (11.8-14.0)
[2020-02-20 07:34] LABS: PARTIAL THROMBOPLASTIN TIME 26.1 SECONDS (25.0-38.4)
[2020-02-20 07:37] LABS: CALCIUM LEVEL 9.3 MG/DL (8.8-10.2); CREATININE FOR GFR 3.39 MG/DL (0.55-1.30); GLOMERULAR FILTRATION RATE 14.4 (>45); POTASSIUM SERUM 4.2 MEQ/L (3.5-5.1)
[2020-02-20] MEDS ORDERED: NS 1,000 ML IV SCH ×2 (08:00→11:00)
[2020-02-20] MEDS ORDERED: ONDANSETRON 4MG/2ML VIAL (J2405) As Ordered ONE (08:05)
[2020-02-20] MEDS ORDERED: SUGAMMADEX SODIUM 500 MG/5 ML VIAL (BRIDION) As Ordered ONE (08:05)
[2020-02-20] MEDS ORDERED: BUPIVACAINE/EPIN 0.5% 30 ML VIAL As Ordered ONE (08:05)
[2020-02-20] MEDS ORDERED: LIDOCAINE 2% INJ 100 MG/5 ML SDV (FOR ANES.) As Ordered ONE (08:05)
[2020-02-20] MEDS ORDERED: propofoL 200 MG/20 ML VIAL As Ordered ONE (08:05)
[2020-02-20] MEDS ORDERED: fentaNYL 100 MCG/2 ML INJECTION (J3010) As Ordered ONE (08:05)
[2020-02-20] MEDS ORDERED: MIDAZOLAM INJ 2 MG/2 ML VIAL (J2250) As Ordered ONE (08:05)
[2020-02-20] MEDS ORDERED: ROCURONIUM BROMIDE 50 MG/5 ML VIAL As Ordered ONE (08:05)
[2020-02-20] MEDS ORDERED: METOCLOPRAMIDE INJ 10MG/2ML VIAL (J2765) As Ordered ONE (08:05)
[2020-02-20] MEDS ORDERED: dexameTHASONE 4 MG/ML 1ML VIAL (J1100 PER 1MG) As Ordered ONE (08:05)
[2020-02-20] MEDS ORDERED: PHENYLephrine HCL 500 MCG/5 ML (100MCG/ML) SYRINGE (J2370) As Ordered ONE ×2 (08:08→08:53)
[2020-02-20] MEDS ORDERED: ePHEDrine SULFATE 25 MG/5 ML(5MG/ML) SYRINGE As Ordered ONE ×2 (08:08→08:53)
[2020-02-20] MEDS ORDERED: DESFLURANE 240 ML INHALANT As Ordered ONE (08:57)
[2020-02-20] MEDS ORDERED: PERC5TAB12 PO (10:23)
--- NOTE | 2020-02-20 10:26 | ROOPDOC ---
[facility] Report Of Operation Report of Operation DATE OF PROCEDURE: 02/20/20 PREPROCEDURE DIAGNOSES: Renal failure POSTPROCEDURE DIAGNOSES: Same PROCEDURE: Right brachial artery to axillary vein 7mm Artegraft placement SURGEON: Bella Rivera MD ANESTHESIA: GETA and local INDICATION FOR PROCEDURE: This is a very pleasant 69-year-old patient with end- stage renal disease, requiring access for hemodialysis, and no option for autologous access. After reviewing her vein mapping, we decided the best option would be a right brachial axillary AV graft, and we discussed the risks benefits and alternatives to placing the graft with the patient. She was extensively counseled and all questions were answered. She was agreeable to proceed. Informed consent was obtained. REPORT OF OPERATION: The patient was brought to the operating room in stable condition and placed supine on the OR table. Anesthesia and antibiotics were administered without complication. Her right upper extremity was prepped and draped in a sterile fashion, and an Ioban was used over the skin. A timeout was performed. An incision was made over the brachial artery pulse just proximal to the antecubital crease. This was carried down to the subcutaneous tissues with Bovie cautery. The brachial artery and vein were identified. The artery was skeletonized proximally and distally and Vesseloops were placed around the vessel. We then turned our attention to the axillary vein. We made an incision over the axillary artery pulse secure this down through the subcutaneous tissue with Bovie cautery. The axillary sheath was carefully opened and the vein was skeletonized proximally and distally well being careful to preserve and avoid the nerves. We placed a vessel loop around several branches distally on the vein. One small branch partially tore with dissection, and was oversewn with a 6-0 Prolene suture and then a vessel loop was placed her on this branch as well. Next, we skeletonized the vein proximally for placement of a bulldog clamp. We then selected a 7 mm Artegraft and tunneled this from the brachial artery incision to the axillary vein incision. The arterial and was cut on the bevel and the opening was narrowed to 5 mm by oversewing the bevel with 5-0 Prolene suture. Anesthesia gave 2000 units of heparin which was allowed to circulate. We then secured the Vesseloops and a 5 mm arteriotomy was made in the brachial artery. We anastomosed the graft to the artery and an end-to-side fashion with 6-0 Prolene suture. Before the final sutures are placed, we flushed the inflow and outflow and irrigated with heparinized saline. A clamp was placed on the graft to prevent blood flow through the grafts of the graft would not clot. We then restored flow to the hand and there was a good radial artery pulse. We then made a long bevel at the venous end of the graft and secured the bulldog clamp and Vesseloops on the vein. A large tenotomy was made and the graft was anastomosed to the vein and an end-to-side fashion with running 6-0 Prolene suture. Before the final sutures are placed, we flushed the inflow and outflow of the vein and also flushed the arterial end of the graft and irrigated with heparinized saline. We then placed her final sutures and restored flow through the vein and then the graft and good hemostasis was noted. We irrigated both incisions with copious amounts of normal saline. Local anesthesia was admini stered around the skin and subcutaneous tissue and over the nurse and the axillary fossa. In the axillary incision, we approximated the deep tissues with interrupted Vicryl suture and close the fascia over the graft in the vein with a running 2-0 Vicryl suture. We then closed with 2 additional there is a 4-0 Vicryl suture and a 4-0 Monocryl suture was used to close the skin. Mastisol and Steri-Strips replace the length of the incision, along with gauze and Tegaderm as a final dressing. On the arterial incision, we again irrigated with normal saline and local anesthesia was administered to skin and subcutaneous tissues. The deeper tissue was approximated over the graft with 4-0 Vicryl suture. The deep dermal layer was approximated with 4-0 Vicryl suture. The skin was closed with a running subcuticular Monocryl suture. Mastisol and Steri-Strips replace the length of the wound and covered with gauze and Tegaderm for final dressing. The patient was allowed to awaken from anesthesia was taken to recovery in stable condition. She tolerated the anesthesia and the procedure well. ESTIMATED BLOOD LOSS: Approximately 35 mL. COMPLICATIONS: None PLAN: The patient will be discharged home today. Local wound care instructions have been provided. Prescription for Percocet was given. We will see her back in a week to check her incision in her graft flow. We appreciate the opportunity to participate in the care of this patient. BELLA RIVERA MD Feb 20, 2020 10:26
[2020-02-20] MEDS ORDERED: ONDANSETRON 4MG/2ML VIAL (J2405) IV PRN (11:00)
[2020-02-20] MEDS ORDERED: PERCOCET 5MG/325MG TAB PO PRN (11:00)
[2020-02-20] MEDS ORDERED: fentaNYL 100 MCG/2 ML INJECTION (J3010) IV PRN (11:00)
[2020-02-20] MEDS ORDERED: METOCLOPRAMIDE INJ 10MG/2ML VIAL (J2765) IV PRN (11:00)
[2020-02-20 12:55] VITALS: BP 136/48
== END 2020-02-20 13:20 | disposition home or self-care (01) ==
LOC: M SDC 06:22
PROVIDERS: ATTEND Surgery Vascular Surgery
DX: N18.6 End stage renal disease (principal); E11.22 Type 2 diabetes mellitus with diabetic chronic kidney disease; D63.1 Anemia in chronic kidney disease; N25.81 Secondary hyperparathyroidism of renal origin; H25.22 Age-related cataract, morgagnian type, left eye; Z78.0 Asymptomatic menopausal state; Z79.4 Long term (current) use of insulin; Z99.2 Dependence on renal dialysis
CPT/HCPCS: 36415; 36830; 80048; 85027; 85610; 85730; 86850; 86900; 86901; C1768; J1100; J1644; J2250; J2370; J2405; J2765; J3010

== ENCOUNTER → 2020-03-03 | Outpatient (REF) | payer OTHER ==
[~2020-03-03] MED LIST changes: -LIDOCAINE 1% MDV 20ML VIAL SQ PRN; +PERC5TAB12 PO
== END ==
LOC: M LAB REF 13:14
PROVIDERS: ATTEND Physician Assistant
DX: N18.6 End stage renal disease (principal); S41.101A Unspecified open wound of right upper arm, initial encounter; W18.30XA Fall on same level, unspecified, initial encounter; Y92.9 Unspecified place or not applicable

== ENCOUNTER → 2020-04-19 | Outpatient (CLI) | payer OTHER ==
[~2020-04-19] MED LIST changes: +VITA50005 PO
== END ==
LOC: M LABSMTC 12:43
PROVIDERS: ATTEND Anesthesiology
DX: Z03.818 Encounter for observation for suspected exposure to other biological agents ruled out (principal); Z11.59 Encounter for screening for other viral diseases
CPT/HCPCS: C9803; U0003

== ENCOUNTER 2020-04-22 07:26 | Day surgery (SDC) | payer OTHER ==
[~2020-04-22] VITALS: Ht 165.1 cm; Wt 80.3 kg
[~2020-04-22 07:26] MED LIST changes: +CEFUROXIME 1MG/0.1ML INTRACAMERAL INJ As Ordered ONE; +DUOVISC (0.50ML VISCOAT/0.55ML PROVISC) OPHTH KIT As Ordered ONE; +MIDAZOLAM INJ 2MG/2ML VIAL (J2250 PER 1MG) As Ordered ONE; +OFLOXACIN 0.3 % (OCUFLOX) OPTH SOL 5ML OS ONE; +PHENYLEPHRINE 2.5% OPHTH SOL 2ML OS ONE; +POVIDONE-IODINE 5% OPHTH PREP SOL 30ML As Ordered ONE; +PROPARACAINE 0.5% OPHTH SOL 15ML OS ONE; +TROPICAMIDE 1% OPHTH SOLN 2ML OS ONE; +fentaNYL 100 MCG/2 ML INJECTION (J3010) As Ordered ONE
[2020-04-22] MEDS ORDERED: BSS IRR 500ML/OMIDRIA 4ML IRR BAG (OR ONLY) (J1097 PER ML) As Ordered ONE (09:06)
[2020-04-22] MEDS ORDERED: ACETYLCHOLINE OPHTH SOLN 1% 2ML (MIOCHOL-E) As Ordered ONE (09:32)
[2020-04-22 10:00] VITALS: BP 172/72
--- NOTE | 2020-04-27 14:23 | RO ---
DATE OF PROCEDURE: 04/22/2020 PREOPERATIVE DIAGNOSIS: 1. Visually significant nuclear sclerotic cataract left eye. POSTOPERATIVE DIAGNOSIS: 1. Visually significant nuclear sclerotic cataract left eye. PROCEDURE: 1. Cataract extraction with use of phacoemulsification and placement of intraocular lens, AU00T0 19.0 D, left eye. SURGEON: Froylan Bach DO MICA BUILDER: None. ANESTHESIA: Local with monitored anesthesia care (MAC), with Omidria (4 mL/500 mL) mixed into irrigation solution. COMPLICATIONS: None. POSTOPERATIVE CONDITION: Stable. INDICATIONS FOR SURGERY: 1. Blurred vision affecting patients activities of daily living. DESCRIPTION OF PROCEDURE: The patient was seen in the preoperative area and properly identified. The correct operative eye was identified and marked. The patient received topical anesthetic, antibiotics, and topical dilating drops. The patient was then transferred to the operating room. The correct side was re-identified, and a time-out was performed. The eye was prepped and draped in a sterile fashion. The eyelids were isolated with Tegaderm tape, and the lids were held open with an adjustable speculum. A 1.0 mm paracentesis incision was made. Intraocular preservative-free Shugarcaine was then injected into the anterior chamber. Viscoelastic was then injected into the anterior chamber through the paracentesis. Using a 2.4 mm sharp-tipped keratome, the anterior chamber was entered via a temporal clear cornea incision. A continuous curvilinear capsulorrhexis was created with Utrata forceps. Hydrodissection was performed with balanced salt solution (BSS) on a blunt cannula until the nucleus was able to rotate freely. The crystalline lens was phacoemulsified and aspirated. Irrigation/aspiration was used to remove the cortical material. Cohesive viscoelastic was placed into the capsular bag to deepen it. The implant was placed into the capsular bag and allowed to unfold. Placement was confirmed by visualizing the anterior capsulorrhexis. Irrigation/aspiration was used to remove the viscoelastic. The clear corneal incision was hydrated with BSS on a blunt cannula. The lens was well positioned. The incisions were then tested for leaks and found to be negative. Cefuroxime was injected into the anterior chamber. The eye was then palpated for appropriate pressure and adjusted accordingly with BSS. The eyelid speculum was then carefully removed. A shield was placed over the eye. The patient tolerated the procedure well and was discharged to the recovery unit in a stable condition.
== END 2020-04-22 10:24 | disposition home or self-care (01) ==
LOC: M SDC 07:26
PROVIDERS: ATTEND Ophthalmology
DX: H25.12 Age-related nuclear cataract, left eye (principal); K21.9 Gastro-esophageal reflux disease without esophagitis; E11.9 Type 2 diabetes mellitus without complications; Z79.4 Long term (current) use of insulin; Z88.8 Allergy status to other drugs, medicaments and biological substances; Z79.899 Other long term (current) drug therapy
CPT/HCPCS: 36415; 66984; 84132; J1097; J2250; J3010

== ENCOUNTER → 2020-09-22 | Outpatient (CLI) | payer OTHER ==
[~2020-09-22] MED LIST changes: +ALTEPLASE 2MG/2ML VIAL As Ordered ONE; +AMLO1TAB24 PO; -AMLO5TAB6 PO; -CEFUROXIME 1MG/0.1ML INTRACAMERAL INJ As Ordered ONE; -DUOVISC (0.50ML VISCOAT/0.55ML PROVISC) OPHTH KIT As Ordered ONE; +ISOVUE-300 61% 50ML VIAL As Ordered ONE; +LIDOCAINE 1% MDV 20ML VIAL As Ordered ONE; -OFLOXACIN 0.3 % (OCUFLOX) OPTH SOL 5ML OS ONE; -PHENYLEPHRINE 2.5% OPHTH SOL 2ML OS ONE; -POVIDONE-IODINE 5% OPHTH PREP SOL 30ML As Ordered ONE; +PROMETHAZINE INJ 25 MG/ML VIAL (J2550) As Ordered ONE; -PROPARACAINE 0.5% OPHTH SOL 15ML OS ONE; -TROPICAMIDE 1% OPHTH SOLN 2ML OS ONE; +diphenhydrAMINE 50MG/ML VIAL (J1200) As Ordered ONE
--- NOTE | 2020-09-22 12:59 | IRHP ---
[facility] IR Pre-Procedure H & P General Date of Service: Sep 22, 2020 Procedure: Same Day Surgery Interval History and Physical I have seen the patient and reviewed last H & P performed within 30 days. There is no significant interval change. History of Present Illness Chief Complaint The patient is a 70-year-old female admitted with a reason for visit of Clotted Avg Rt Arm. PRE-PROCEDURE DIAGNOSIS: AVG clotted HEART: normal rate. LUNGS: normal breathing at rest. ASA Classification ASA Classification: III-Severe systemic dis. Mallampati Score: II NPO: Yes Problems with prior sedation: No Obstructive Sleep Apnea: No Plan moderate sedation Allergies Coded Allergies: fluorescein (Verified Allergy, Mild, ITCHY, 04/15/20) Home Medications Scheduled Ergocalciferol (Vitamin D2) (Vitamin D2), 1 CAP PO QWEEK, (Reported) Folic Acid/Vit B Complex and C (Marilyn-Delmar Tablet), 1 TAB PO DAILY, (Reported) Insulin Human NPH (Humulin N), 13 UNITS SC BID, (Reported) VS, I&O, 24H, Fishbone Vital Signs/I&O Vital Signs Date Time Temp Pulse Resp B/P (MAP) Pulse Ox O2 Delivery O2 Flow Rate FiO2 09/22/20 11:45 96.9 75 20 98 Room Air JOHN ROY MD Sep 22, 2020 12:59
[2020-09-22 17:05] VITALS: BP 154/72
--- NOTE | 2020-09-23 09:50 | POST-OPPD ---
Postoperative Procedure Note Date Of Procedure: Sep 22, 2020 Time Of Procedure: 16:00 IR AV graft Declot Clinical Information:Renal failure. Right arm graft clotted. Physician: . Procedure: The patient was advised of the benefits, risks, and alternatives of the procedure and informed consent was obtained. A time out was performed with verification of the patient's name, MRN, site of procedure, and type of procedure to be performed. The patient was positioned in the prone position on the angiographic table. The site was prepped and draped in the usual sterile fashion. Moderate sedation was performed by the physician including the presence of an independent trained RN who assisted in monitoring the patient's level of consciousness and physiological status. Following the administration of fentanyl and Versed, the physician spent 90 minutes of continuous dybi-xa-tlrg time with the patient. A fur plucker radiograph reveals no gross abnormality. Lidocaine was used for local anesthesia. An antegrade puncture was made close to the arterial anastomosis with a micropuncture kit. A glidewire was passed centrally and a 6 Singaporean short sheath placed. A 5 Singaporean Kumpe catheter was advanced over the wire into the central veins. A central venogram was then performed demonstrating no central venous occlusion. A pull-back venogram of the venous outflow and venous anastomosis demonstrates a thrombosed location AV graft with the suggestion of venous outflow stenosis. 4 mg of TPA was administered into the clotted graft. Systemic heparin was administered. After an appropriate dwell time, an 8 x 100 mm angioplasty balloon was advanced over the wire, under fluoroscopy guidance into the graft and used to angioplasty and macerate thrombus. Angioplasty of the venous outflow was performed using a 8 x 100 mm angioplasty balloon. The graft was then accessed in a retrograde direction and an additional 6 Singaporean short sheath placed. A Glidewire was advanced through the retrograde sheath and used to cross the arterial anastomosis and positioned into the distal artery. A Lakeshia balloon was passed over the Glidewire into the arterial circulation, inflated and retracted under fluoroscopic guidance to disrupt the arterial plug. This was repeated 2 additional times. At this point physical exam indicated the graft was patent. A small volume fistulogram confirmed patency. An antegrade fistulogram was then performed demonstrating patent AV graft but persistent stenosis in the upstream venous outflow. The 8 x 100 mm angioplasty balloon was again passed over the wire, under fluoro scopy guidance, to the area venous outflow stenosis and used to angioplasty the venous outflow stenosis. Follow-up contrast injection confirms resolution of stenosis and improved flow through the venous outflow. A reflux fistulogram was performed demonstrating a widely patent arterial anastomosis. All wires, catheters, and angioplasty balloons were removed. Both sheaths were removed with a temporary pursestring sutures placed for hemostasis. This was later removed in recovery. The patient tolerated the procedure well without immediate complication. EBL:Less than 15 mL. Complications:None. Conclusion: 1. Successful pharmaco-mechanical thrombectomy of right arm AV graft. 2. Successful venous outflow angioplasty to 8 mm. Thank you for this referral Cc Dr. Bach. JOHN ROY MD Sep 23, 2020 09:50
== END ==
LOC: M IRPRO 11:31
PROVIDERS: ATTEND Radiology Diagnostic Radiology
DX: T82.868A Thrombosis due to vascular prosthetic devices, implants and grafts, initial encounter (principal); N18.6 End stage renal disease; X58.XXXA Exposure to other specified factors, initial encounter; Z91.041 Radiographic dye allergy status
CPT/HCPCS: 36905; 99152; 99153; C1725; C1757; C1769; C1887; C1894; J1200; J1644; J2250; J2997; J3010; Q9967

== ENCOUNTER → 2020-11-29 | Outpatient (CLI) | payer OTHER ==
[~2020-11-29] MED LIST changes: +APIXABAN 5 MG TAB (ELIQUIS) PO ONE; +CALC1CAP; +ELIQ5TAB PO; -PROMETHAZINE INJ 25 MG/ML VIAL (J2550) As Ordered ONE; -diphenhydrAMINE 50MG/ML VIAL (J1200) As Ordered ONE
[2020-11-29 18:42] VITALS: BP 172/72
--- NOTE | 2020-11-29 19:01 | ROOPDOC ---
[facility] Report Of Operation Report of Operation DATE OF PROCEDURE: 11/29/20 PREPROCEDURE DIAGNOSES: Thrombosis right brachial axillary AV graft POSTPROCEDURE DIAGNOSES: Same PROCEDURE: 1. Ultrasound-guided antegrade and retrograde access right brachial axillary AV graft 2. Angioplasty right subclavian vein into SVC with 9 x 80 Talcott balloon 3. Angioplasty right graft venous anastomosis with 9 x 80 Talcott balloon 4. Declot AV graft with 8 mg tPA and 5 x 40 arterial balloon, 7 x 40 venous balloon 5. Angioplasty arterial graft anastomosis with 5 x 40 Talcott balloon 6. Completion venogram SURGEON: Bella Rivera MD ANESTHESIA: Local anesthesia 5 mL lidocaine. Moderate intravenous conscious sedation was administered by Dr. Rivera. The patient was independently monitored by a registered nurse assigned to the Department of radiology using automated blood pressure, EKG, and pulse oximetry. The detailed sedation records permanently stored in the hospital information system. The following is a brief sedation record: Start time 17:22, stop time 18:19, Versed 1 mg IV, fentanyl 50 g IV, tPA 8 mg IV. CONTRAST: Isovue-300 32 mL. INDICATION FOR PROCEDURE: This is a very pleasant 70-year-old patient, end-stage renal disease on hemodialysis, who went to dialysis on Sunday and had a thrombosed AV graft. Another provider was consulted over the weekend and the patient underwent a right AV graft angioplasty this morning, then returned to dialysis and her graft was still clotted. I was then consulted for salvage of graft. Risks benefits and alternatives to a right upper extremity fistulogram, possible declot procedure, possible angioplasty, possible PermCath were explained to the patient she was agreeable to proceed. Informed consent was obtained. INTERPRETATION: 1. There is good flow in the arterial system but there is thrombus at the AV anastomosis and in the distal graft noted on ultrasound and fistulogram. The graft is patent proximal to the venous anastomosis with a 40% stenosis at the venous anastomosis, then widely patent inflow through the axillary system and 30% stenosis in the subclavian vein and 30% stenosis at the subclavian SVC junction. 2. After angioplasty of the outflow of the venous anastomosis and the subclavian SVC stenoses, there is widely patent flow through to the central system. No significant residual stenosis or extravasation noted. 3. After TPA and declot procedure of the AV anastomosis, there is patent flow but notable intimal hyperplasia at the AV anastomosis. 4. After angioplasty of the AV anastomosis, there is improved flow into the graft and a somewhat improved thrill in the graft. Mild residual stenosis was noted, but no extravasation noted. REPORT OF OPERATION: Patient was brought to the angiographic suite in stable condition. Her right upper extremity was prepped and draped in sterile fashion. A timeout was performed. Local anesthesia was administered to the skin and subcutaneous tissue over the AV graft near the AV anastomosis and near the venous anastomosis. A microneedle was used to gain antegrade and retrograde access to the graft sequentially. First, we gained antegrade access near the arterial graft anastomosis and a wire was passed through this access under fluoroscopic guidance and a 4 Cook Islander sheath was placed and flushed with saline. Next, we gained retrograde access near the venous anastomosis under ultrasound guidance with a microneedle and a wire was passed through this access under fluoroscopic guidance and 4 [place] Islander sheath was placed and flushed with saline. A Glidewire was advanced through each graft retrograde and antegrade. The retrograde wire was advanced into the arterial system and the antegrade wire was advanced into the SVC. First, we exchange the antegrade sheath for a 6 [place] Islander sheath and flushed sheath with saline, and then exchanged the retrograde sheath for 5 [place] Islander sheath and flushed the sheath with saline. Through the antegrade sheath, we advanced a 9 x 80 Talcott balloon into the central system through the subclavian vein and SVC. Three-minute inflation was performed, please see interpretation above. We then retracted the balloon to the venous anastomosis of the graft and did another three-minute inflations, please interpretation above. We flushed with copious amounts of heparinized saline and completion and venograms were done. 8 mg of TPA was administered with the glide cath to the thrombus near the AV anastomosis. We then utilized a 5 x 40 Talcott balloon retrograde through the arterial anastomosis, hand inflated this with a 5 mL syringe, and retracted it to remove thrombus from the AV anastomosis. We then pushed this thrombus with the antegrade balloon, 7 x 40, through to the central system. We did this push-pull method several more times. Following this, there is a marked improvement in flow, but still stenosis, likely intimal hyperplasia, at the AV anastomosis. We then angioplasty the AV anastomosis with a 5 x 40 balloon for three-minute inflation. Following this, there was definitely an improvement inflow through the graft, but not as great of the thrill as I had hoped. A second angioplasty was performed, results were similar. No extravasation noted. Overall there was no significant thrombus left in the graft and and improve flow. The graft was marked on the skin, although this likely is not necessary since the patient has sufficient track so from previous access sites. We then placed [id number] Prolene sutures around the sheath and removed the sheath. Pressure was held and sterile dressings were applied. Good hemostasis was noted at the end of the case. The patient was taken to recovery in stable condition. She tolerated the sedation in the procedure well. ESTIMATED BLOOD LOSS: Approximately 5 mL. COMPLICATIONS: none. PLAN: It is okay to use the AV graft for dialysis. We will start the patient on eliquis, first dose in recovery tonight. She thinks she has eliquis at home from when she took it in the past, but we will give her a prescription regardless. Is okay to resume her other home medications and her home diet. We are hopeful that the graft will work well for dialysis, but if there is any trouble, we will place a PermCath tomorrow and plan for graft revision. I suspect the intimal hyperplasia at the inflow is largely responsible for the thrombosis. However, with eliquis, and intermittent angioplasty when needed, we should be able to keep the graft patent. I've explained this to the patient and her significant other, and they are agreeable to this plan. We appreciate the opportunity to participate in the care of this patient. BELLA RIVERA MD Nov 29, 2020 19:01
== END ==
LOC: M IRPRO 15:27
PROVIDERS: ATTEND Surgery Vascular Surgery
DX: T82.868A Thrombosis due to vascular prosthetic devices, implants and grafts, initial encounter (principal); N18.6 End stage renal disease; E11.22 Type 2 diabetes mellitus with diabetic chronic kidney disease; X58.XXXA Exposure to other specified factors, initial encounter; Z79.4 Long term (current) use of insulin; Z88.8 Allergy status to other drugs, medicaments and biological substances; Z99.2 Dependence on renal dialysis
CPT/HCPCS: 36905; 99152; 99153; C1725; C1769; C1887; C1894; J1644; J2250; J2997; J3010; Q9967

== ENCOUNTER → 2020-11-29 | Outpatient (CLI) | payer OTHER ==
[~2020-11-29] MED LIST changes: -APIXABAN 5 MG TAB (ELIQUIS) PO ONE; +PROMETHAZINE INJ 25 MG/ML VIAL (J2550) As Ordered ONE; +diphenhydrAMINE 50MG/ML VIAL (J1200) As Ordered ONE
--- NOTE | 2020-11-29 07:41 | IRMSE ---
[facility] IR Moderate Sedation Eval. Date and Time Date: Nov 29, 2020 Time: 07:41 ASA Classification ASA Classification: III-Severe systemic dis. Mallampati Score: II NPO: Yes Obstructive Sleep Apnea: No Interval Plan: moderate sedation JOHN ROY MD Nov 29, 2020 07:41
[2020-11-29 11:40] VITALS: BP 157/79
--- NOTE | 2020-11-29 15:44 | POST-OPPD ---
Postoperative Procedure Note Date Of Procedure: Nov 29, 2020 Time Of Procedure: 11:59 IR AV graft Declot Clinical Information:Renal failure. Right arm graft clotted. Physician: . Procedure: The patient was advised of the benefits, risks, and alternatives of the procedure and informed consent was obtained. A time out was performed with verification of the patient's name, MRN, site of procedure, and type of procedure to be performed. The patient was positioned in the prone position on the angiographic table. The site was prepped and draped in the usual sterile fashion. Moderate sedation was performed by the physician including the presence of an independent trained RN who assisted in monitoring the patient's level of consciousness and physiological status. Following the administration of fentanyl and Versed, the physician spent 120 minutes of continuous qyra-pp-ebky time with the patient. A control center operator radiograph reveals no gross abnormality. Lidocaine was used for local anesthesia. An antegrade puncture was made close to the arterial anastomosis with a micropuncture kit. A glidewire was passed centrally and a 6 Mexican short sheath placed. A 5 Mexican Kumpe catheter was advanced over the wire into the central veins. A central venogram was then performed demonstrating no central venous occlusion. A pull-back venogram of the venous outflow and venous anastomosis demonstrates a thrombosed AV graft with the suggestion of venous outflow stenosis. 4 mg of TPA was administered into the clotted graft. Systemic heparin was administered. After an appropriate dwell time, an 8 x 200 mm angioplasty balloon was advanced over the wire, under fluoroscopy guidance into the graft and used to angioplasty and macerate thrombus. Angioplasty of the venous outflow was performed using a 8 x 100 mm angioplasty balloon. The graft was then accessed in a retrograde direction and an additional 6 Mexican short sheath placed. A Glidewire was advanced through the retrograde sheath and used to cross the arterial anastomosis and positioned into the distal artery. A Lakeshia balloon was passed over the Glidewire into the arterial circulation, inflated and retracted under fluoroscopic guidance to disrupt the arterial plug. This was repeated 2 additional times. At this point physical exam indicated the graft was patent. A small volume fistulogram confirmed patency. An antegrade fistulogram was then performed demonstrating patent AV graft but persistent stenosis in the upstream venous outflow. The 8 x 100 mm angioplasty balloon was again passed over the wire, under fluoroscopy guidance, to the area venous outflow stenosis and used to angioplasty the venous outflow stenosis. Follow-up contrast injection confirms resolution of stenosis and improved flow through the venous outflow. A reflux fistulogram was performed demonstrating a patent arterial anastomosis. All wires, catheters, and angioplasty balloons were removed. Both sheaths were removed with a temporary pursestring sutures placed for hemostasis. This was later removed in recovery. The patient tolerated the procedure well without immediate complication. EBL:Less than 15 mL. Complications:None. Conclusion: 1. Successful pharmaco-mechanical thrombectomy of right arm AV graft. 2. Successful venous outflow angioplasty to 8 mm. Thank you for this referral JOHN ROY MD Nov 29, 2020 15:44
== END ==
LOC: M IRPRO 07:18
PROVIDERS: ATTEND Radiology Diagnostic Radiology
DX: T82.868A Thrombosis due to vascular prosthetic devices, implants and grafts, initial encounter (principal); X58.XXXA Exposure to other specified factors, initial encounter; N18.6 End stage renal disease; Z99.2 Dependence on renal dialysis
CPT/HCPCS: 36905; 99152; 99153; C1725; C1757; C1769; C1887; C1894; J1200; J1644; J2250; J2997; J3010; Q9967

== ENCOUNTER 2020-12-19 19:28 | Emergency (ER) | payer OTHER ==
[~2020-12-19 19:28] MED LIST changes: -ALTEPLASE 2MG/2ML VIAL As Ordered ONE; -CALC1CAP; -ISOVUE-300 61% 50ML VIAL As Ordered ONE; -LIDOCAINE 1% MDV 20ML VIAL As Ordered ONE; -MIDAZOLAM INJ 2MG/2ML VIAL (J2250 PER 1MG) As Ordered ONE; -PROMETHAZINE INJ 25 MG/ML VIAL (J2550) As Ordered ONE; -diphenhydrAMINE 50MG/ML VIAL (J1200) As Ordered ONE; -fentaNYL 100 MCG/2 ML INJECTION (J3010) As Ordered ONE
[2020-12-19] MEDS ORDERED: NS 1,000 ML IV ONE (20:00)
[2020-12-19 20:06] LABS: BASO # 0.1 10^3/uL (0.0-0.2); BASO % 0.5 % (0.0-1.0); EOS % 0.2 % (0.0-3.0); HEMATOCRIT 37.1 % (36.0-47.0); HEMOGLOBIN 11.6 g/dl (12.0-15.5); LYMPH # 0.8 10^3/uL (1.5-5.0); LYMPH % 7.3 % (24.0-44.0); MEAN CORPUSCULAR HEMOGLOBIN 28.2 pg (27.0-33.0); MEAN CORPUSCULAR HGB CONC 31.3 g/dl (32.0-36.5); MONO # 0.3 10^3/uL (0.0-0.8); MONO % 2.4 % (0.0-5.0); NEUTROPHILS # 9.7 10^3/uL (1.5-8.5); NEUTROPHILS % 89.1 % (36.0-66.0); PLATELET COUNT, AUTOMATED 290 10^3/uL (150-450); RED BLOOD COUNT 4.12 10^6/uL (4.00-5.40); WHITE BLOOD COUNT 10.9 10^3/uL (4.0-10.0)
[2020-12-19] MEDS ORDERED: CALC1CAP (20:08)
[2020-12-19] MEDS ORDERED: POTASSIUM CHLORIDE 10 MEQ SR TABLET PO ONE (20:15)
[2020-12-19 20:39] LABS: ALBUMIN 3.7 GM/DL (3.2-5.2); ALT/SGPT 26 U/L (12-78); BILIRUBIN,DIRECT 0.2 MG/DL (0.0-0.2); BILIRUBIN,TOTAL 0.4 MG/DL (0.2-1.0); BLOOD UREA NITROGEN 69 MG/DL (7-18); CALCIUM LEVEL 8.7 MG/DL (8.8-10.2); CARBON DIOXIDE LEVEL 24 MEQ/L (21-32); CHLORIDE LEVEL 101 MEQ/L (98-107); CK-MB VALUE MASS 1.3 NG/ML (<3.6); CPK CREATINE PHOSPHOKINASE 58 U/L (26-192); CREATININE FOR GFR 5.71 MG/DL (0.55-1.30); GLOMERULAR FILTRATION RATE 7.9 (>45); GLUCOSE, FASTING 275 MG/DL (70-100); LIPASE 102 U/L (73-393); MAGNESIUM LEVEL 2.2 MG/DL (1.8-2.4); MB/CK RELATIVE INDEX 2.24 (< OR =4); POTASSIUM SERUM 4.1 MEQ/L (3.5-5.1); SODIUM LEVEL 138 MEQ/L (136-145); TOTAL PROTEIN 7.9 GM/DL (6.4-8.2); TROPONIN I < 0.02 NG/ML (< 0.10)
--- NOTE | 2020-12-19 20:43 | REPVR ---
PROCEDURE INFORMATION: Exam: CT Head Without Contrast Exam date and time: 12/19/2020 8:16 PM Age: 70 years old Clinical indication: Dizziness; Additional info: Dizziness, HTN TECHNIQUE: Imaging protocol: Computed tomography of the head without contrast. Radiation optimization: All CT scans at this facility use at least one of these dose optimization techniques: automated exposure control; mA and/or kV adjustment per patient size (includes targeted exams where dose is matched to clinical indication); or iterative reconstruction. COMPARISON: No relevant prior studies available. FINDINGS: Brain: Moderate volume loss. Decreased attenuation of the supratentorial white matter is likely secondary to chronic microvascular ischemia. Large chronic left MCA infarction. Cerebral ventricles: No hydrocephalus. Ex vacuo dilatation of the left lateral ventricle. Bones/joints: Unremarkable. No acute fracture. Paranasal sinuses: Small mucous retention cyst or polyp involving the sphenoid sinus. Mastoid air cells: Visualized mastoid air cells are well aerated. Soft tissues: Unremarkable. IMPRESSION: 1. No acute intracranial abnormality. 2. Chronic left MCA infarction. Electronically signed by: Epi Gutierrez On 12/19/2020 20:42:59 PM
[2020-12-19] MEDS ORDERED: diazePAM 10MG/2ML SYRINGE (J3360 PER 5MG) IV ONE (21:00)
--- NOTE | 2020-12-19 21:26 | REPVR ---
PROCEDURE INFORMATION: Exam: XR Chest, 1 View Exam date and time: 12/19/2020 9:11 PM Age: 70 years old Clinical indication: Other: Dizzyness; Additional info: Dizziness TECHNIQUE: Imaging protocol: XR of the chest Views: 1 view. COMPARISON: TX Chest, 2 view PA, Lat 01/05/2020 10:53 AM FINDINGS: Lungs: Unremarkable. No consolidation. Pleural spaces: Unremarkable. No pleural effusion. No pneumothorax. Heart/Mediastinum: Cardiac silhouette is magnified by portable technique. Vasculature: There is calcification involving the thoracic aorta. Bones/joints: Osteopenia. There are degenerative changes involving the spine. Chronic fracture of the proximal left humerus. IMPRESSION: No acute cardiopulmonary process. Electronically signed by: Epi Gutierrez On 12/19/2020 21:26:23 PM
[2020-12-19 22:32] LABS: RSV AMPLIFICATION NEGATIVE (NEGATIVE)
--- NOTE | 2020-12-19 23:18 | REPVR ---
PROCEDURE INFORMATION: Exam: MR Angiogram Head Without Contrast, Arteries Exam date and time: 12/19/2020 8:56 PM Age: 70 years old Clinical indication: Dizziness and giddiness; Patient HX: PT states around 2pm today started feeling very dizzy and some weakness; Additional info: Cerebellar infarct TECHNIQUE: Imaging protocol: MR angiogram head without contrast. Exam focused on the arteries. 3D rendering (Not supervised by radiologist): MIP and/or 3D reconstructed images were created by the technologist. COMPARISON: CT Head without contrast 12/19/2020 8:10 PM FINDINGS: Limitations: Patient motion. ANTERIOR CIRCULATION: Right internal carotid artery: Intracranial segment is patent with no significant stenosis. No aneurysm. Right middle cerebral artery: No occlusion or significant stenosis. No aneurysm. Right anterior cerebral artery: No occlusion or significant stenosis. No aneurysm. Left internal carotid artery: Intracranial segment is patent with no significant stenosis. No aneurysm. Left middle cerebral artery: No occlusion or significant stenosis. No aneurysm. Left anterior cerebral artery: No occlusion or significant stenosis. No aneurysm. POSTERIOR CIRCULATION: Right vertebral artery: No occlusion or significant stenosis. No aneurysm. Left vertebral artery: No occlusion or significant stenosis. No aneurysm. Basilar artery: No occlusion or significant stenosis. No aneurysm. Right posterior cerebral artery: Severe right POLICY OFFICER P2 stenosis. Left posterior cerebral artery: No occlusion or significant stenosis. No aneurysm. IMPRESSION: 1. Patient motion. 2. No large vessel occlusion. 3. Severe right POLICY OFFICER P2 stenosis. Electronically signed by: Epi Gutierrez On 12/19/2020 23:18:10 PM
--- NOTE | 2020-12-19 23:52 | REPVR ---
PROCEDURE INFORMATION: Exam: MR Head Without Contrast Exam date and time: 12/19/2020 10:19 PM Age: 70 years old Clinical indication: Other: Dizzy overall weakness; Patient HX: PT states around 2pm today started feeling very dizzy and some weakness; Additional info: Cerebellar infarct TECHNIQUE: Imaging protocol: MR of the head without contrast. COMPARISON: CT Head without contrast 12/19/2020 8:10 PM FINDINGS: There is patient motion. Age-related volume loss. Major vascular flow voids at the skull base are preserved. No extra-axial fluid collection. Nonspecific white matter gliosis, probable chronic microvascular ischemia. There is left cerebellar diffusion restriction measuring up to 4.5 cm. Associated T2 prolongation. Minimal paranasal sinus disease. No significant mastoid effusion. Right-sided phthisis bulbi. IMPRESSION: Left cerebellar acute/early subacute ischemic infarct measuring up to 4.5 cm. Electronically signed by: Epi Gutierrez On 12/19/2020 23:52:20 PM
[2020-12-20] MEDS ORDERED: hydrALAZINE 20MG/ML 1ML VIAL (J0360 PER 20MG) IV STA (00:26)
[2020-12-20] MEDS ORDERED: ONDANSETRON 4MG/2ML VIAL IV ONE (00:45)
[2020-12-20 01:00] VITALS: BP 195/90
--- NOTE | 2020-12-21 08:40 | ECGEPIP ---
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
== END 2020-12-20 01:19 | disposition short-term general hospital (02) ==
LOC: M ED 19:28
DX: I63.9 Cerebral infarction, unspecified (principal); E11.9 Type 2 diabetes mellitus without complications; I12.0 Hypertensive chronic kidney disease with stage 5 chronic kidney disease or end stage renal disease; N18.6 End stage renal disease; Z88.8 Allergy status to other drugs, medicaments and biological substances; Z79.899 Other long term (current) drug therapy; Z79.82 Long term (current) use of aspirin; Z79.4 Long term (current) use of insulin
CPT/HCPCS: 36415; 51702; 70450; 70544; 70551; 71045; 80048; 80076; 82550; 82553; 83605; 83690; 83735; 84484; 85025; 87507; 87631; 93005; 93041; 96361; 96374; 96375; 99285; J0360; J3360